=== PATIENT | male | born 1955 | race Caucasian/White ===

== ENCOUNTER 2016-10-20 18:06 | Emergency (ER) | payer BC, OTHER ==
[~2016-10-20] VITALS: Ht 170.2 cm; Wt 91.9 kg
[~2016-10-20 18:06] MED LIST: ASPI325T39 PO; ATOR10TA88 PO; ATV5X PO; CRG125 PO; GLC/500 PO; MULT-506 PO; WEIGHT LOSS PO
[2016-10-20 18:13] VITALS: TEMP 36.6; Ht 170.2 cm; Wt 91.9 kg
[2016-10-20] MEDS ORDERED: MECLIZINE HCL 25 MG TAB PO STA (18:32)
[2016-10-20] MEDS ORDERED: ACETAMINOPHEN 500 MG TAB PO STA (18:32)
--- NOTE | 2016-10-20 18:53 | DIAGNOSTIC IMAGING REPORT ---
CT HEAD WITHOUT CONTRAST (CT) CLINICAL HISTORY: Headache and dizziness status post head trauma COMPARISON STUDY: 09/15/2014 TECHNIQUE: Axial CT of the brain is performed from the vertex to the skull base. IV contrast was not administered for this examination. CT DOSE: 729.78 mGycm FINDINGS: No intra or extra-axial mass lesions are visualized. There is no CT evidence of acute cortical infarction. There is no evidence of midline shift. There is no acute hemorrhage. No calvarial fractures are visualized. There are minimal white matter hypodensities likely on a small vessel basis. There is no evidence of pathologic ventricular dilatation. There are mild atrophic changes similar to the preceding study. There is a small lipoma adjacent to the torcula. There is no evidence of acute sinusitis IMPRESSION: No acute intracranial findings Electronically signed by: Flash Strong M.D. 10/20/2016 6:51 PM Dictated Date/Time: 10/20/2016 6:49 PM
[2016-10-20] MEDS ORDERED: LISI-461 PO (19:01)
[2016-10-20] MEDS ORDERED: METF-384 PO (19:01)
[2016-10-20] MEDS ORDERED: LPT10 PO (19:01)
[2016-10-20] MEDS ORDERED: INSU3INJ3 SC (19:06)
[2016-10-20] MEDS ORDERED: INDO-24 PO (19:06)
[2016-10-20] MEDS ORDERED: NORCO 5/325MG HOME PACK PO ONE (19:15)
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
[2016-10-20] MEDS ORDERED: HYDR-5688 PO (19:38)
[2016-10-20 19:54] VITALS: BP 159/93; PULSE 86; O2SAT 98
[2017-02-14] MEDS ORDERED: LSX40 PO (00:37)
[2017-05-16] MEDS ORDERED: ASPCH81X PO (09:35)
== END 2016-10-20 19:56 | disposition home or self-care (01) ==
LOC: C.EDB 18:08 → C.EDD 19:56
DX: S09.90XA Unspecified injury of head, initial encounter (principal); W50.0XXA Accidental hit or strike by another person, initial encounter; Y92.89 Other specified places as the place of occurrence of the external cause; Y99.0 Civilian activity done for income or pay; E11.9 Type 2 diabetes mellitus without complications; I10 Essential (primary) hypertension; I51.9 Heart disease, unspecified; E78.5 Hyperlipidemia, unspecified; Z79.4 Long term (current) use of insulin; Z79.82 Long term (current) use of aspirin; Z79.84 Long term (current) use of oral hypoglycemic drugs; Z79.899 Other long term (current) drug therapy

== ENCOUNTER 2017-02-14 17:44 | Inpatient (IN) | payer BC ==
[~2017-02-14] VITALS: Ht 170.2 cm; Wt 86.7 kg
[~2017-02-14 17:44] MED LIST changes: -ATOR10TA88 PO; -GLC/500 PO; +HYDR-5688 PO; +INDO-24 PO; +INSU3INJ3 SC; +LISI-461 PO; +LPT10 PO; +LSX40 PO; +METF-384 PO; -WEIGHT LOSS PO
[2017-02-14] MEDS ORDERED: ASPIRIN 81 MG CHEW PO STA (18:05)
[2017-02-14 18:43] LABS: BASO % 0.3 %; BASO ABS # 0.02 K/uL (0-0.2); COMPLETE YES; HEMATOCRIT 38.2 % (42-52); IG% 0.2 %; LYMPH % 29.9 %; LYMPH ABS # 1.77 K/uL (1.2-3.4); MEAN CELL VOLUME 86.2 fL (80-100); MEAN CORPUSCULAR HEMOGLOBIN 29.3 pg (25-34); MEAN PLATELET VOLUME 10.4 fL (7.4-10.4); MONO % 8.8 %; NEUT % 57.8 %; PLATELET COUNT 181 K/uL (130-400); RED BLOOD COUNT 4.43 M/uL (4.7-6.1); WHITE BLOOD COUNT 5.92 K/uL (4.8-10.8)
--- NOTE | 2017-02-14 18:49 | DIAGNOSTIC IMAGING REPORT ---
SINGLE VIEW CHEST CLINICAL HISTORY: Atypical chest pain. FINDINGS: An AP, portable, upright chest radiograph is compared to study dated 04/08/2015 and correlated with chest CT dated 09/04/2014. The examination is degraded by portable technique and patient rotation. The cardiomediastinal silhouette is unremarkable. The lungs and pleural spaces are clear. No pneumothorax is seen. The bony thorax is grossly intact. IMPRESSION: No active disease in the chest. Electronically signed by: Pascual Joseph M.D. 02/14/2017 6:47 PM Dictated Date/Time: 02/14/2017 6:47 PM
[2017-02-14 18:53] LABS: INR 0.9 (0.9-1.1); PROTHROMBIN TIME (PATIENT) 10.1 SECONDS (9.0-12.0)
[2017-02-14 19:10] LABS: ALT/SGPT 27 U/L (12-78); AST/SGOT 15 U/L (15-37); BLOOD UREA NITROGEN 30 mg/dl (7-18); BUN/CREATININE RATIO 22.9 (10-20); CALCIUM 8.7 mg/dl (8.5-10.1); CARBON DIOXIDE 25 mmol/L (21-32); CHLORIDE 105 mmol/L (98-107); GLUCOSE 170 mg/dl (70-99); POTASSIUM 4.1 mmol/L (3.5-5.1); SODIUM 140 mmol/L (136-145)
[2017-02-14 19:15] LABS: ALKALINE PHOSPHATASE 66 U/L (45-117); CKMB/CK RATIO 2.3 (0-3.0)
[2017-02-14] MEDS ORDERED: TRAM-10 PO (19:36)
--- NOTE | 2017-02-14 20:10 | EMERGENCY ROOM VISIT NOTE ---
History First contact with patient: 17:54 Chief Complaint: CARDIAC ASSESSMENT Stated Complaint: HEART EKG BAD ,DIZZY Nursing Triage Summary: Patient went to his PCP today for evaluation of weakness and dizziness Sent to the ED for evaluation of EKG with T wave inversion. Patient denies CP. He stated "I think I over did it with my new job" History of Present Illness The patient is a 61 year old male who presents to the Emergency Room for an abnormal ECG at his PCPs office today. The patient reports that he started a new job 3 weeks ago. He reports that the job is very physical. 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 The patient reports that he has had upper back pain since starting. The patient has also had a headache and weakness. He was concerned mostly about the weakness, and presented to his family doctor' s office today for evaluation. He reported having a T-wave inversion, and was sent to the emergency department for further evaluation. The patient reports that his pain is mostly on the left side. He does report occasional numbness of the right upper extremity. He has not had any diaphoresis, nausea or vomiting. The patient does have a history of heart disease, and follows with [facility] cardiology service. He does not recall when his last stress test was. The patient is currently afebrile. The patient does report a prior history of vertebral fracture secondary to a work injury last March. He does not recall which vertebrae was involved as is x-ray was performed at [facility]. Review of Systems HEENT: Denies visual problems, hearing loss, tinnitus. Denies difficulty swallowing or oral lesions. PULMONARY: Denies cough, shortness of breath, sputum production or hemoptysis. CARDIOVASCULAR: Denies palpitations, dyspnea on exertion, orthopnea or peripheral edema. GASTROINTESTINAL: Denies diarrhea, constipation, nausea, vomiting, or abdominal pain. GENITOURINARY: Denies dysuria, frequency, urgency or nocturia. NEUROLOGIC: Denies history of epilepsy, CVA, TIA or chronic headaches. MUSCULOSKELETAL: Denies history of joint tenderness/swelling. SKIN: Denies rashes or lesions. PSYCHIATRIC: Denies history of depression or mental illness. ENDOCRINE: Denies history of diabetes or thyroid disorders. Past Medical/Surgical History Medical Problems: (1) Anxiety State Nos (2) Coronary Atherosclerosis Of [place] Coronary Vessel (3) Diab Dot Wo Compl, Type Ii Or Unspec Type, Not Uncntrld (4) Diabetes (5) Hyperlipemia (6) Hyperlipidemia Nec/Nos (7) Hypertension (8) Hypertension Nos (9) Organic Hypersomnia, Unspecified Surgical Problems: (1) History of cardiac catheterization Family History Cancer Diabetes mellitus Hypertension Lung disease Social History Smoking Status: Never Smoker Alcohol Use: none Marital Status: Housing Status: lives with family Occupation Status: unemployed Current/Historical Medications Scheduled Aspirin (Aspirin Ec), 325 MG PO DAILY Atorvastatin (Atorvastatin Calcium), 10 MG PO HS Carvedilol (Carvedilol), 12.5 MG PO QPM Furosemide (Furosemide), 40 MG PO QPM Insulin Detemir (Levemir Flextouch), 20 UNITS SC QAM Lisinopril (Lisinopril), 10 MG PO DAILY Metformin Hcl (Glucophage), 1,000 MG PO BIDM Multivitamin (Multivitamin), 1 TAB PO DAILY Scheduled PRN Indomethacin (Indocin), 50 MG PO TID PRN for Gout Flares Lorazepam (Lorazepam), 0.5 MG PO Q8 PRN for Anxiety Tramadol (Ultram), 50 MG PO Q8H PRN for Pain Allergies Coded Allergies: No Known Allergies (Unverified , 10/11/16) Physical Exam Vital Signs Date Time Temp Pulse Resp B/P Pulse Ox O2 Delivery O2 Flow Rate FiO2 02/14/17 18:30 96 Room Air 02/14/17 18:28 79 02/14/17 18:27 96 Room Air 02/14/17 17:48 36.5 88 16 99/66 94 Room Air Physical Exam CONSTITUTIONAL: Healthy and well nourished. Alert and oriented X 3 with positive affect. She does not appear in any acute distress. HEENT: Normocephalic, atraumatic. Pupils equal, round and reactive. NECK: Full active range of motion without discomfort. No significant tenderness to palpation through the central cervical spine or cervical musculature. RESPIRATORY: Clear to auscultation bilaterally with no wheezing, crackles, rhonchi or stridor. CARDIOVASCULAR: Regular rate and rhythm with no murmurs, rubs or gallops. GASTROINTESTINAL: Bowel sounds present in all quadrants. Soft and nontender to palpation. MUSCULOSKELETAL: Full range of motion of all joints without discomfort. Patient has no tenderness to palpation across the left anterior chest wall, costochondral joints or shoulder region. Range of motion of the left shoulder does not worsen his discomfort. INTEGUMENTARY: No rash or other significant dermatologic conditions noted. HEMATOLOGIC: No ecchymosis or petechiae appreciated. NEUROLOGIC: Cranial nerves II-XII grossly intact. No focal neurologic deficits noted. Upper extremities are sensory intact. Medical Decision & Procedures ER Provider Diagnostic Interpretation: My interpretation of an ECG shows an inverted T-wave in lead 1, and flattening T waves in lateral leads. This is different when compared to a prior ECG on . My interpretation of a portable chest x-ray does not show any consolidations, pneumothorax or cardiac prominence. Radiologist report is as follows: SINGLE VIEW CHEST CLINICAL HISTORY: Atypical chest pain. FINDINGS: An AP, portable, upright chest radiograph is compared to study dated 04/08/2015 and correlated with chest CT dated 09/04/2014. The examination is degraded by portable technique and patient rotation. The cardiomediastinal silhouette is unremarkable. The lungs and pleural spaces are clear. No pneumothorax is seen. The bony thorax is grossly intact. IMPRESSION: No active disease in the chest. Laboratory Results 02/14/17 18:25 Red Blood Count 4.43, Mean Corpuscular Volume 86.2, Mean Corpuscular Hemoglobin 29.3, Mean Corpuscular Hemoglobin Concent 34.0, Mean Platelet Volume 10.4, Neutrophils (%) (Auto) 57.8, Lymphocytes (%) (Auto) 29.9, Monocytes (%) (Auto) 8.8, Eosinophils (%) (Auto) 3.0, Basophils (%) (Auto) 0.3, Neutrophils # (Auto) 3.42, Lymphocytes # (Auto) 1.77, Monocytes # (Auto) 0.52, Eosinophils # (Auto) 0.18, Basophils # (Auto) 0.02 02/14/17 18:25 Test 02/14/17 18:25 White Blood Count 5.92 K/uL (4.8-10.8) Red Blood Count 4.43 M/uL (4.7-6.1) Hemoglobin 13.0 g/dL (14.0-18.0) Hematocrit 38.2 % (42-52) Mean Corpuscular Volume 86.2 fL (80-100) Mean Corpuscular Hemoglobin 29.3 pg (25-34) Mean Corpuscular Hemoglobin Concent 34.0 g/dl (32-36) Platelet Count 181 K/uL (130-400) Mean Platelet Volume 10.4 fL (7.4-10.4) Neutrophils (%) (Auto) 57.8 % Lymphocytes (%) (Auto) 29.9 % Monocytes (%) (Auto) 8.8 % Eosinophils (%) (Auto) 3.0 % Basophils (%) (Auto) 0.3 % Neutrophils # (Auto) 3.42 K/uL (1.4-6.5) Lymphocytes # (Auto) 1.77 K/uL (1.2-3.4) Monocytes # (Auto) 0.52 K/uL (0.11-0.59) Eosinophils # (Auto) 0.18 K/uL (0-0.5) Basophils # (Auto) 0.02 K/uL (0-0.2) RDW Standard Deviation 42.6 fL (36.4-46.3) RDW Coefficient of Variation 13.5 % (11.5-14.5) Immature Granulocyte % (Auto) 0.2 % Immature Granulocyte # (Auto) 0.01 K/uL (0.00-0.02) Prothrombin Time 10.1 SECONDS (9.0-12.0) Prothromb Time International Ratio 0.9 (0.9-1.1) Activated Partial Thromboplast Time 26.6 SECONDS (21.0-31.0) Partial Thromboplastin Ratio 1.0 D-Dimer 290 ug/L FEU (0-500) Anion Gap 10.0 mmol/L (3-11) Est Creatinine Clear Calc Drug Dose 65.0 ml/min Estimated GFR () 69.2 Estimated GFR (Non- 59.7 BUN/Creatinine Ratio 22.9 (10-20) Calcium Level 8.7 mg/dl (8.5-10.1) Total Bilirubin 0.6 mg/dl (0.2-1) Direct Bilirubin < 0.1 mg/dl (0-0.2) Aspartate Amino Transf (AST/SGOT) 15 U/L (15-37) Alanine Aminotransferase (ALT/SGPT) 27 U/L (12-78) Alkaline Phosphatase 66 U/L (45-117) Total Creatine Kinase 176 U/L (39-308) Creatine Kinase MB 4.1 ng/ml (0.5-3.6) Creatine Kinase MB Ratio 2.3 (0-3.0) Troponin I < 0.015 ng/ml (0-0.045) Total Protein 6.8 gm/dl (6.4-8.2) Albumin 3.8 gm/dl (3.4-5.0) Lipase 243 U/L (73-393) The above labs were reviewed. Troponin and d-dimer are normal. Medications Administered Medications (Trade) Dose Ordered Sig/Magno Route Start Time Stop Time Status Last Admin Dose Admin Aspirin (Aspirin Chew) 324 mg NOW STAT PO 02/14/17 18:05 02/14/17 18:07 DC 02/14/17 18:17 324 MG ED Course Patient history and physical exam were performed. Nurse's notes were reviewed. Vital signs were reviewed, showing a blood pressure of 99/66. The patient is afebrile. O2 saturation 94% on room air, and pulse rate 88. The patient does not appear in any acute distress, and denies any chest pain on exam. IV access was established, and labs were drawn. An ECG shows lateral changes when compared to a prior ECG in 2014. Review of labs shows a normal troponin and d- dimer. Remaining labs are also grossly normal. The patient remained a symptomatic while in the emergency department. Review of prior medical records shows that the patient was last admitted at our facility in August 2012. The patient did have an extensive workup at that time showing a nonischemic cardiomyopathy. He did undergo cardiac catheterization in July 2011 with only very mild disease. The patient does not appear to have had any recent catheterization procedures. The case was also reviewed with Dr. Avendano, ED attending physician, who agrees with hospitalist evaluation and cardiac workup, including stress test. The case was then discussed with Dr. Vieyra, [facility] hospitalist. Please see his dictation for further treatment and final disposition. Medical Decision Patient presents to the emergency department with a 2-3 day history of left- sided chest pain and other symptoms. The patient has a known history of nonischemic cardiomyopathy. He was also referred to the emergency department from his PCPs office after having an abnormal ECG. His ECG in the emergency department is different from a prior ECG of 2015. Although his workup/labs are normal today, I do feel that change in his ECG warrants further cardiac evaluation and stress echo. With the patient's new job, this could also be musculoskeletal etiology. Impression Primary Impression: Left sided chest pain Additional Impression: History of nonischemic cardiomyopathy Departure Information Referrals Mateo Lamb M.D. (PCP) Patient Instructions My [facility] Problem Qualifiers
[2017-02-14] MEDS ORDERED: TRAMADOL HCL 50 MG TAB PO PRN (20:30)
[2017-02-14] MEDS ORDERED: ONDANSETRON INJ 2 MG/ML 2 ML VIAL IV PRN (20:30)
[2017-02-14] MEDS ORDERED: DEXTROSE 50% 50 ML SYR IV PRN (20:30)
[2017-02-14] MEDS ORDERED: GLUCOSE 10 TABS/TUBE PO PRN (20:30)
[2017-02-14] MEDS ORDERED: LORAZEPAM 0.5 MG TAB PO PRN (20:30)
[2017-02-14] MEDS ORDERED: NITROGLYCERIN 0.4 MG SL PER TAB CHARGE SL PRN (20:30)
[2017-02-14] MEDS ORDERED: ACETAMINOPHEN 325 MG TAB PO PRN (20:30)
[2017-02-14] MEDS ORDERED: GLUCAGON FOR INJ 1 MG VIAL SQ PRN (20:30)
[2017-02-14] MEDS ORDERED: ZOLPIDEM TARTRATE 5 MG TAB PO PRN (20:30)
[2017-02-14] MEDS ORDERED: GLUCOSE 40% GEL 15 GM TUBE PO PRN (20:30)
[2017-02-14] MEDS ORDERED: ATORVASTATIN 10 MG TAB PO SCH (21:00)
[2017-02-14] MEDS: INSULIN ASPART 100 UNITS/ML 3 ML PEN SC SCH (21:00)
[2017-02-14] MEDS ORDERED: FUROSEMIDE 40 MG TAB PO SCH (21:00)
[2017-02-14 21:13] LABS: CKMB/CK RATIO 2.3 (0-3.0)
[2017-02-14 21:30] VITALS: BP 122/70; PULSE 76; TEMP 36.5; O2SAT 96; Ht 170.2 cm; Wt 86.7 kg
[2017-02-14] MEDS: HEPARIN 25,000 UNIT/500ML D5W 500 ML IV PRN (22:20)
[2017-02-14] MEDS: CARVEDILOL 6.25 MG TAB PO SCH (22:32)
[2017-02-14 23:32] VITALS: BP 107/66; PULSE 63; TEMP 36.4; O2SAT 96
--- NOTE | 2017-02-14 23:39 | History and Physical ---
History & Physical Date & Time of Service: February 14, 2017 at 23:39 Chief Complaint: Abnormal Ekg, Left Sided Chest Pain Primary Care Physician: Mateo Lamb M.D. History of Present Illness Source: patient The patient is a 61-year-old male with past medical history of coronary artery disease/diabetes mellitus/hyperlipidemia/hypertension/history of cardiac catheterization, who presents to the emergency department after presenting to his PCPs office for assessment of upper back pain between shoulder blades when he was found to have an abnormal EKG and was referred to the emergency department for further assessment. He has been working a more physical job recently, and in particular, his symptoms of upper back pain, headache, and generalized weakness over the past 3 days have been associated with more physically heavy lifting. His upper back pain is primarily on the left side, but he does also have occasionally right upper extremity numbness. Past Medical/Surgical History Medical Problems: (1) Diabetes Status: Chronic (2) Hyperlipemia Status: Chronic (3) Hypertension Status: Chronic Surgical Problems: (1) History of cardiac catheterization Status: Resolved Family History Cancer Diabetes mellitus Hypertension Lung disease Social History Smoking Status: Never Smoker Smokeless Tobacco Use: No Alcohol Use: none Drug Use: none Marital Status: Housing status: lives with family Occupational Status: unemployed Immunizations History of Influenza Vaccine: No History of Tetanus Vaccine?: Yes History of Pneumococcal: Yes Pneumococcal Date: Aug 03, 2012 History of Hepatitis B Vaccine: Yes Multi-Drug Resistant Organisms History of MDRO: No Allergies Coded Allergies: No Known Allergies (Unverified , 10/11/16) Home Medications Scheduled Aspirin (Aspirin Ec), 325 MG PO DAILY Atorvastatin (Atorvastatin Calcium), 10 MG PO HS Carvedilol (Carvedilol), 12.5 MG PO QPM Furosemide (Furosemide), 40 MG PO QPM Insulin Detemir (Levemir Flextouch), 20 UNITS SC QAM Lisinopril (Lisinopril), 10 MG PO DAILY Metformin Hcl (Glucophage), 1,000 MG PO BIDM Multivitamin (Multivitamin), 1 TAB PO DAILY Scheduled PRN Indomethacin (Indocin), 50 MG PO TID PRN for Gout Flares Lorazepam (Lorazepam), 0.5 MG PO Q8 PRN for Anxiety Tramadol (Ultram), 50 MG PO Q8H PRN for Pain Review of Systems The patient denies chest pain, palpitations, shortness of breath, cough, lower extremity swelling, vision change, hearing change, sore throat, fevers, chills, sweats, weight change, nausea, vomiting, abdominal pain, pelvic pain, blood in urine or stool, dysuria, urinary frequency or urgency, memory loss, rash, abnormal bruising or bleeding, imbalance, focal weakness, numbness or tingling in arms or legs, arthralgias or myalgias, night sweats, or allergy symptoms. The review of systems is otherwise negative other than for that already noted above, and at least 10 systems have been reviewed. Physical Exam Vital Signs Date Time Temp Pulse Resp B/P Pulse Ox O2 Delivery O2 Flow Rate FiO2 02/14/17 23:32 36.4 63 18 107/66 96 Room Air 02/14/17 21:30 36.5 76 18 122/70 96 Room Air 02/14/17 20:34 77 18 114/67 96 Room Air 02/14/17 18:30 96 Room Air 02/14/17 18:28 79 02/14/17 18:27 96 Room Air 02/14/17 17:48 36.5 88 16 99/66 94 Room Air The patient is awake, well-developed and adequately nourished, alert and oriented 3, normocephalic and atraumatic, lying in bed and in no acute distress. HEENT--PERRL, EOMI, mucous membranes and oropharynx normal. Neck--supple, no JVD or bruits, thyroid normal, trachea midline, no adenopathy. Heart--normal S1 and S2, no extra beats, no murmurs, rubs or gallops. Lungs--clear bilaterally with good air movement, no respiratory distress, no accessory muscle use. Abdomen--normal bowel sounds and soft, nontender and nondistended, no hernias or masses, no organomegaly. Extremities--no cyanosis, clubbing or edema. There are good distal pulses b/l. Dermatologic--normal skin turgor, normal color, warm and dry, no abnormal lymph nodes, no rash. Neurologic--cranial nerves II through XII grossly intact, motor and sensory examination normal. Rheumatologic--normal range of motion, nontender, muscles and joints. No reproducible upper back pain Psychiatric--normal affect. Diagnostics Laboratory Results Results Past 24 Hours Test 02/14/17 18:25 02/14/17 20:41 02/14/17 22:36 Range/Units White Blood Count 5.92 4.8-10.8 K/uL Red Blood Count 4.43 4.7-6.1 M/uL Hemoglobin 13.0 14.0-18.0 g/dL Hematocrit 38.2 42-52 % Mean Corpuscular Volume 86.2 80-100 fL Mean Corpuscular Hemoglobin 29.3 25-34 pg Mean Corpuscular Hemoglobin Concent 34.0 32-36 g/dl Platelet Count 181 130-400 K/uL Mean Platelet Volume 10.4 7.4-10.4 fL Neutrophils (%) (Auto) 57.8 % Lymphocytes (%) (Auto) 29.9 % Monocytes (%) (Auto) 8.8 % Eosinophils (%) (Auto) 3.0 % Basophils (%) (Auto) 0.3 % Neutrophils # (Auto) 3.42 1.4-6.5 K/uL Lymphocytes # (Auto) 1.77 1.2-3.4 K/uL Monocytes # (Auto) 0.52 0.11-0.59 K/uL Eosinophils # (Auto) 0.18 0-0.5 K/uL Basophils # (Auto) 0.02 0-0.2 K/uL RDW Standard Deviation 42.6 36.4-46.3 fL RDW Coefficient of Variation 13.5 11.5-14.5 % Immature Granulocyte % (Auto) 0.2 % Immature Granulocyte # (Auto) 0.01 0.00-0.02 K/uL Prothrombin Time 10.1 9.0-12.0 SECONDS Prothromb Time International Ratio 0.9 0.9-1.1 Activated Partial Thromboplast Time 26.6 21.0-31.0 SECONDS Partial Thromboplastin Ratio 1.0 D-Dimer 290 0-500 ug/L FEU Sodium Level 140 136-145 mmol/L Potassium Level 4.1 3.5-5.1 mmol/L Chloride Level 105 98-107 mmol/L Carbon Dioxide Level 25 21-32 mmol/L Anion Gap 10.0 3-11 mmol/L Blood Urea Nitrogen 30 7-18 mg/dl Creatinine 1.30 0.60-1.40 mg/dl Est Creatinine Clear Calc Drug Dose 65.0 ml/min Estimated GFR () 69.2 Estimated GFR (Non- 59.7 BUN/Creatinine Ratio 22.9 10-20 Random Glucose 170 70-99 mg/dl Calcium Level 8.7 8.5-10.1 mg/dl Total Bilirubin 0.6 0.2-1 mg/dl Direct Bilirubin < 0.1 0-0.2 mg/dl Aspartate Amino Transf (AST/SGOT) 15 15-37 U/L Alanine Aminotransferase (ALT/SGPT) 27 12-78 U/L Alkaline Phosphatase 66 45-117 U/L Total Creatine Kinase 176 163 39-308 U/L Creatine Kinase MB 4.1 3.8 0.5-3.6 ng/ml Creatine Kinase MB Ratio 2.3 2.3 0-3.0 Troponin I < 0.015 < 0.015 0-0.045 ng/ml Total Protein 6.8 6.4-8.2 gm/dl Albumin 3.8 3.4-5.0 gm/dl Lipase 243 73-393 U/L Bedside Glucose 131 70-99 mg/dl Diagnostic Radiology Patient Name: RADHA BELL Unit Number: [id number] Dictated: 02/14/171846 Transcribed: 02/14/171846 EV Printed Date/Time: [~ rep prt dt]/[~ rep prt tm] [~ rep ct labl] - [~ rep ct ivnm] [facility] [place] [place] [address] Dictated: 02/14/171846 Transcribed: 02/14/171846 EV Printed Date/Time: [~ rep prt dt]/[~ rep prt tm] [~ rep ct labl] - [~ rep ct ivnm] [~ rep ct add3]] SINGLE VIEW CHEST CLINICAL HISTORY: Atypical chest pain. FINDINGS: An AP, portable, upright chest radiograph is compared to study dated 04/08/2015 and correlated with chest CT dated 09/04/2014. The examination is degraded by portable technique and patient rotation. The cardiomediastinal silhouette is unremarkable. The lungs and pleural spaces are clear. No pneumothorax is seen. The bony thorax is grossly intact. IMPRESSION: No active disease in the chest. Electronically signed by: Pascual Joseph M.D. 02/14/2017 6:47 PM Dictated Date/Time: 02/14/2017 6:47 PM The status of this report is Signed. Draft = Not yet reviewed or approved by Radiologist. Signed = Reviewed and approved by Radiologist. <AttendingPhy></AttendingPhy> <FamilyPhy>Mateo Lamb M.D.</FamilyPhy > <PrimaryPhy>Mateo Lamb M.D.</PrimaryPhy> <UnitNumber>[id number]</ UnitNumber> <VisitNumber>[id number]</VisitNumber> <PatientName>RADHA BELL</PatientName> <DateOfBirth>1955</DateOfBirth> <Location>[facility]</ Location> <ServiceDate>02/14/17</ServiceDate> <MNE>ESINDI</MNE> <OrderingPhy> Fahad Raza</OrderingPhy> <OrderingPhyMNE>f rep ord dr read</ OrderingPhyMNE> <DictatingPhyMNE>f rep dict dr read</DictatingPhyMNE> <CCListMNE> f rep ct jacek</CCListMNE> <AdmittingPhyMNE>f pt admit dr read</AdmittingPhyMNE> < AttendingPhyMNE>f pt attend dr read</AttendingPhyMNE> <ConsultingPhyMNE>f pt consult dr read</ConsultingPhyMNE> <FamilyPhyMNE>f pt fam dr read</FamilyPhyMNE> <OtherPhyMNE>f pt other dr read</OtherPhyMNE> < PrimaryPhyMNE>f pt prim care dr read</PrimaryPhyMNE> <ReferringPhyMNE>f pt referring dr read</ReferringPhyMNE> EKG EKG shows normal sinus rhythm at 83 bpm, left axis deviation, T-wave inversions in leads I and aVL, and flattening decreased sample to in V5 and V6. Impression Assessment and Plan CAD/hypertension/lateral EKG changes-- the patient will be admitted to the telemetry unit for serial cardiac enzymes, cardiac rhythm monitoring and a 2-D echocardiogram with Dopplers. He'll be started on heparin drip standard dose per weight-based protocol. Continue aspirin 325 mg by mouth daily and change carvedilol from 12.5 mg every evening to 0.25 mg by mouth twice a day. Continue furosemide 40 mg by mouth daily and lisinopril 10 mg by mouth daily. Repeat a BMP and magnesium level in the a.m. We'll consult cardiology, as he follows with an [facility] cardiology. Diabetes mellitus--continue Levemir insulin 20 units subcutaneous every morning. Hold metformin 1000 mg by mouth twice a day. Place on Accu-Cheks before meals and at bedtime with NovoLog coverage scale. Hypercholesterolemia--continue atorvastatin 10 mg by mouth at bedtime. Check a fasting lipid profile. Anxiety--continue lorazepam 0.5 mg by mouth every 8 hours when necessary. Chronic pain--continue tramadol 50 mg by mouth every 8 hours when necessary. Level of Care Telemetry Advanced Directives Existing Advance Directive: No Existing Living Will: No Existing Power of Banquet Manager: No Resuscitation Status FULL RESUSCITATION VTE Prophylaxis VTE Risk Assessment Done? Y/N: Yes Risk Level: Low Given or contraindicated: Other Anticoagulation (IV heparin per standard dose weight-based protocol.) Social Service Consult None Apply
[2017-02-15] MEDS ORDERED: HEPARIN 25,000 UNIT/500ML D5W 500 ML IV PRN (01:15)
[2017-02-15 03:51] VITALS: BP 111/75; PULSE 65; TEMP 36.5; O2SAT 94
[2017-02-15 04:48] LABS: BASO % 0.4 %; BASO ABS # 0.02 K/uL (0-0.2); COMPLETE YES; EOS % 4.3 %; HEMATOCRIT 39.8 % (42-52); IG% 0.2 %; LYMPH % 29.8 %; LYMPH ABS # 1.68 K/uL (1.2-3.4); MEAN CELL VOLUME 86.3 fL (80-100); MEAN CORPUSCULAR HEMOGLOBIN 28.9 pg (25-34); MEAN CORPUSCULAR HGB CONC 33.4 g/dl (32-36); MEAN PLATELET VOLUME 9.9 fL (7.4-10.4); MONO % 10.8 %; NEUT % 54.5 %; PLATELET COUNT 178 K/uL (130-400); RED BLOOD COUNT 4.61 M/uL (4.7-6.1); WHITE BLOOD COUNT 5.63 K/uL (4.8-10.8)
[2017-02-15 05:06] LABS: BLOOD UREA NITROGEN 23 mg/dl (7-18); BUN/CREATININE RATIO 20.6 (10-20); CALCIUM 8.5 mg/dl (8.5-10.1); CARBON DIOXIDE 30 mmol/L (21-32); CHLORIDE 104 mmol/L (98-107); GLUCOSE 123 mg/dl (70-99); POTASSIUM 3.9 mmol/L (3.5-5.1); SODIUM 141 mmol/L (136-145)
[2017-02-15 05:11] LABS: CKMB/CK RATIO 2.4 (0-3.0)
[2017-02-15] MEDS: HEPARIN 25,000 UNIT/500ML D5W 500 ML IV PRN (05:43)
[2017-02-15] MEDS: INSULIN ASPART 100 UNITS/ML 3 ML PEN SC SCH (07:00)
[2017-02-15] MEDS ORDERED: PERFLUTREN LIPID MICROSPHERE (DEFINITY) IV ONE (07:11)
[2017-02-15 07:18] VITALS: BP 110/73; PULSE 68; TEMP 36.3; O2SAT 95
[2017-02-15] MEDS ORDERED: ALUMINUM/MAGNESIUM/SIMETH (MAALOX MAX) 30 ML UDC ONE (07:37)
[2017-02-15] MEDS: CARVEDILOL 6.25 MG TAB PO SCH (07:39)
[2017-02-15 08:21] LABS: CHOLESTEROL/HDL RATIO 4.8
[2017-02-15] MEDS ORDERED: INSULIN DETEMIR FLEXPEN/FLEX TOUCH 100 UNITS/ML 3ML SC SCH (09:00)
[2017-02-15] MEDS ORDERED: LISINOPRIL 10 MG TAB PO SCH (09:00)
[2017-02-15] MEDS ORDERED: MULTIVITAMIN TAB PO SCH (09:00)
[2017-02-15] MEDS ORDERED: ASPIRIN 325 MG ECTAB PO SCH (09:00)
[2017-02-15 09:13] LABS: ESTIMATED AVERAGE GLUCOSE 120 mg/dl; HA1C FLAG Normal (Normal)
--- NOTE | 2017-02-15 10:38 | CARDIOLOGY CONSULTATION ---
DATE OF CONSULTATION: 02/15/2017 DATE OF CONSULTATION: 02/15/2017. PERTINENT HISTORY: Mr. Sauceda is a 61-year-old white female well known to me from the outpatient setting. He was admitted yesterday with back and chest discomfort. This consultation was ordered to assist in his management. The patient's recent history began 3 weeks ago. 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 Approximately 1 week after starting the job, he began to note significant upper back discomfort. His pain was constant, but was improved with the use of tramadol. Over that same time frame, the patient developed "a pulled muscle" in his chest. As he describes a sensation, he notes a tenderness across the pectoralis regions bilaterally. At no time has chest pain increased with physical activity. The patient's cardiac history began in July 2011 when he presented to our institution with decompensated congestive heart failure. An echocardiogram noted an ejection fraction of 20-25%. He underwent cardiac catheterization which revealed nonobstructive (20% mid LAD, 20% ramus intermedius). The patient was started on carvedilol and lisinopril. An echocardiogram performed in March 2016 noted improvement in his left ventricular systolic function with an ejection fraction of 45%. There is mild hypokinesis, and evidence of diastolic dysfunction. The patient follows daily weights at home and has not required additional diuretic dosing in over 1 year. PAST MEDICAL HISTORY: 1. Dilated cardiomyopathy -- 25% in 2010, 45% in March 2016. 2. History of systolic congestive heart failure - July 2011. 3. Nonobstructive coronary artery disease status, 20% LAD, 20% ramus intermedius July 2011. 4. Mild mitral regurgitation. 5. Hypertension. 6. Hypercholesterolemia. 7. Diabetes mellitus. 8. GERD. 9. Polyneuropathy. 10. Obstructive sleep apnea. 11. PTSD. 12. Gout. 13. Left foot traumatic injury -- status post ORIF -- October 2015. MEDICATIONS: 1. Carvedilol 6.25 mg b.i.d. 2. Lisinopril 10 mg daily. 3. Lasix 40 mg per day. 4. Aspirin 325 mg daily. 5. Lipitor 10 mg at bedtime. 6. Levemir 20 units subQ q.a.m. 7. Multivitamin 1 per day. 8. Heparin drip. SOCIAL HISTORY: The patient is and lives with his . Works at [employer] x3 weeks. Does not use tobacco or alcohol. FAMILY HISTORY: Mother at age 87 from "old age." Father from lung carcinoma. REVIEW OF SYSTEMS: A 10-point review of systems was negative except for that described above. PHYSICAL EXAMINATION: GENERAL: This is a well-developed, well-nourished white male in no acute distress. VITAL SIGNS: Blood pressure is 110/73 with a regular pulse of 68. Respiratory rate is 20. The patient is afebrile at 36.3 degrees Celsius. Saturations 95% on room air. HEAD, EYES, EARS, NOSE, AND THROAT EXAMINATION: Negative. NECK: Supple with full carotid upstrokes. There are no carotid bruits. Jugular venous pressure is flat at 90 degrees. There is no thyromegaly. CARDIOVASCULAR EXAMINATION: Reveals a regular rhythm. Normal S1 and S2. Heart sounds are distant. No obvious murmurs. No S3 or S4. LUNGS: Clear without rales, rhonchi, or wheezes. ABDOMEN: Soft, nontender without bruits. EXTREMITIES: Reveal intact radial artery pulses bilaterally. CHEST: Reveals tenderness to palpation across both pectoralis major muscles. Back is nontender to palpation. LABORATORY DATA: CBC notes a hemoglobin of 13.3, hematocrit 39.8, white count 5.6, platelet count 178,000. Electrolytes note a sodium of 141, potassium 3.9, chloride 104, bicarbonate 30, BUN 23, creatinine 1.1, glucose 123. Three separate troponin I levels are undetectable at less than 0.015. Three CKs were normal at 176, 163, 123 with MB fractions of 4.1, 3.8, and 3.0 respectively. LDL cholesterol was 132 with HDL 48. PTT is subtherapeutic at 52.6. EKG notes sinus rhythm, left ventricular hypertrophy and repolarization changes. Chest x-ray shows no acute disease. IMPRESSION: Mr. Sauceda was admitted with a chest pain syndrome. His history and physical examination suggests musculoskeletal chest discomfort. He does have relief when using tramadol. As the patient had minimal coronary disease at the time of cardiac catheterization in 2010, doubt that he has had major progression of disease in that time frame. Stress testing or cardiac catheterization is not indicated for this noncardiac chest pain syndrome. PLAN: 1. Discontinue heparin. 2. Ambulate in the hallways, discharge home if stable. FRANCISCO JAVIER
--- NOTE | 2017-02-15 10:54 | ECHOCARDIOGRAM REPORT ---
*NOTICE TO RECEIVING REPUBLICAN AGENCY This information is strictly Confidential and protected under [place] law. [place] law prohibits you from making any further disclosure of this information unless further disclosure is expressly permitted by the written consent of the person to whom it pertains or is authorized by law. A general authorization for the release of medical or other information is not sufficient for this purpose. Hospital accepts no responsibility if the information is made available to any other person, INCLUDING THE PATIENT. Interpretation Summary * Name: RADHA BELL Study Date: 02/15/2017 06:56 AM BP: 111/75 mmHg * Patient Location: C.2T\S\S240\S\2 HR: 65 * : 1955 (M/d/yyyy) Gender: Male Height: 67 in * Age: 61 yrs Ethnicity: CA Weight: 195 lb * Ordering Physician: Santiago Vieyra * Referring Physician: Paula Armstrong * Performed By: Denisa Gongora * * Reason For Study: CHEST PAIN * BSA: 2.0 m2 * -- Conclusions -- * The left ventricle is mildly dilated. * Left ventricular systolic function is moderately reduced. * Grade I diastolic dysfunction, (abnormal relaxation pattern). * The right ventricular systolic function is reduced as assessed by tricuspid annular plane systolic excursion (TAPSE) (TAPSE <1.6 cm). * When compared directly to a study from 07/2011, there has been no significant change in LV systolic function Procedure Details * A complete two-dimensional transthoracic echocardiogram was performed (2D, M-mode, Doppler and color flow Doppler). * A contrast injection of Definity was performed to improve assessment of LV function. * Contrast was injected into an intravenous site in the right arm. * One vial of Definity ultrasound contrast was diluted in normal saline to a total volume of 10 ml. A total of '3' ml of solution was administered during imaging. * Lot # [id number] of Definity utilized for procedure. * Expiration date 01/16. * The attending nurse who injected the contrast agent was DANIELLA CORLEY RN. Left Ventricle * The left ventricle is mildly dilated. * Ejection Fraction = 30-35%. * Left ventricular systolic function is moderately reduced. * Grade I diastolic dysfunction, (abnormal relaxation pattern). * There is moderate global hypokinesis of the left ventricle. Right Ventricle * The right ventricle is grossly normal size. * The right ventricular systolic function is reduced as assessed by tricuspid annular plane systolic excursion (TAPSE) (TAPSE <1.6 cm). Mitral Valve * The mitral valve is grossly normal. * Significant mitral regurgitation is absent. Tricuspid Valve * The tricuspid valve is not well visualized, but is grossly normal. * There is trace tricuspid regurgitation. Aortic Valve * The aortic valve is normal in structure and function. * No hemodynamically significant valvular aortic stenosis. * There is no significant aortic regurgitation. Pericardium/Pleural * There is no pericardial effusion. Great Vessels * IVC not well visualized MMode 2D Measurements and Calculations ACS 1.3 cm asc Aorta Diam 3.4 cm LVOT diam 2.5 cm LVOT area 4.9 cm\S\2 LVAd ap4 35.8 cm\S\2 LVLd ap4 8.3 cm EDV(MOD-sp4) 126.0 ml LVAs ap4 18.2 cm\S\2 LVLs ap4 7.1 cm ESV(MOD-sp4) 39.0 ml EF(MOD-sp4) 69.0 % LVAd ap2 32.8 cm\S\2 LVLd ap2 8.2 cm EDV(MOD-sp2) 108.0 ml LVAs ap2 17.0 cm\S\2 LVLs ap2 6.4 cm ESV(MOD-sp2) 37.0 ml EF(MOD-sp2) 65.7 % CO(MOD-sp4) 6.6 l/min CI(MOD-sp4) 3.3 l/min/m\S\2 SV(MOD-sp4) 87.0 ml SI(MOD-sp4) 43.5 ml/m\S\2 CO(MOD-sp2) 5.4 l/min CI(MOD-sp2) 2.7 l/min/m\S\2 SV(MOD-sp2) 71.0 ml SI(MOD-sp2) 35.5 ml/m\S\2 Doppler Measurements and Calculations MV E max ulises 36.7 cm/sec MV A max ulises 51.5 cm/sec MV E/A 0.71 MV dec time 0.26 sec Ao V2 max 88.7 cm/sec Ao max PG 3.1 mmHg Ao max PG (full) 1.4 mmHg ALEK(V,A) 3.7 cm\S\2 ALEK(V,D) 3.7 cm\S\2 LV V1 max PG 1.7 mmHg LV V1 max 66.1 cm/sec PA V2 max 35.4 cm/sec PA max PG 0.50 mmHg TR max ulises 207.5 cm/sec
--- NOTE | 2017-02-15 11:04 | Discharge Instructions ---
Discharge Instructions Date of Service February 15, 2017. Admission Reason for Admission: Abnormal Ekg, Left Sided Chest Pain Discharge Discharge Diagnosis / Problem: CHest pain rule out Discharge Goals Goal(s): Decrease discomfort, Improve function, Increase independence, Improve disease control, Diagnostic testing, Therapeutic intervention Activity Recommendations Activity Limitations: resume your previous activity Shower/Bathe: no limitations . Instructions / Follow-Up Instructions / Follow-Up Patient to be discharged home Likelychest pain from muscular pain Agree with using tramadol at home for pain, also recommended using heating pad No further recommendations at this time FOllow up with PCP as scheduled Current Hospital Diet Patient's current hospital diet: AHA Diet (Heart Healthy), Diabetes Type 1 Diet Discharge Diet Recommended Diet: Diabetes Type 1 Diet Pending Studies Studies pending at discharge: no Laboratory Results Hemoglobin A1c Test 02/15/17 04:36 Range/Units Estimated Average Glucose 120 mg/dl Hemoglobin A1c 5.8 H 4.5-5.6 % Lipid Panel Test 02/15/17 04:36 Range/Units Triglycerides Level 243 H 0-150 mg/dl Cholesterol Level 229 H 0-200 mg/dl HDL Cholesterol 48 mg/dl Cholesterol/HDL Ratio 4.8 LDL Cholesterol, Calculated 132 mg/dl Medical Emergencies . Who to Call and When: Medical Emergencies: If at any time you feel your situation is an emergency, please call 911 immediately. . Non-Emergent Contact Non-Emergency issues call your: Primary Care Provider Call Non-Emergent contact if: you have a fever, your pain is worsening . . "Provider Documentation" section prepared by Martir Veloz. . VTE Core Measure Inpt VTE Proph given/why not?: Other Anticoagulation (IV heparin per standard dose weight-based protocol.)
[2017-02-15 11:06] VITALS: BP 110/73; PULSE 68; TEMP 36.3; O2SAT 95
--- NOTE | 2017-02-15 12:27 | Progress Note ---
Subjective Date of Service: February 15, 2017. Subjective Pt evaluation today including: conversation w/ patient, physical exam, chart review, lab review, review of studies, review of inpatient medication list No chest pain No acute events overnight Resting comfortably in bed Problem List Medical Problems: (1) Closed head injury Status: Acute (2) Left sided chest pain Status: Acute (3) Work related injury Status: Acute Review of Systems Constitutional: No chills, No fever Respiratory: No cough, No dyspnea on exertion, No shortness of breath, No sputum, No wheezing Cardiac: No chest pain, No orthopnea Abdomen: No diarrhea, No nausea, No pain, No vomiting Musculoskeletal: No joint pain, No muscle pain Male : No dysuria, No urinary frequency Objective Vital Signs Date Time Temp Pulse Resp B/P Pulse Ox O2 Delivery O2 Flow Rate FiO2 02/15/17 11:06 36.3 68 20 95 Room Air 02/15/17 08:00 Room Air 02/15/17 07:18 36.3 68 20 110/73 95 Room Air 02/15/17 04:05 Room Air 02/15/17 03:51 36.5 65 18 111/75 94 Room Air 02/15/17 00:31 Room Air 02/14/17 23:32 36.4 63 18 107/66 96 Room Air 02/14/17 21:30 36.5 76 18 122/70 96 Room Air 02/14/17 20:34 77 18 114/67 96 Room Air 02/14/17 18:30 96 Room Air 02/14/17 18:28 79 02/14/17 18:27 96 Room Air 02/14/17 17:48 36.5 88 16 99/66 94 Room Air Physical Exam General Appearance: WD/WN, no apparent distress Neck: supple, no adenopathy Respiratory/Chest: lungs clear, normal breath sounds Cardiovascular: no edema, no gallop Abdomen: non tender, soft Neurologic/Psychiatric: alert, normal mood/affect Laboratory Results Last 24 Hours Test 02/14/17 18:25 02/14/17 20:41 02/14/17 22:36 02/15/17 04:36 White Blood Count 5.92 K/uL 5.63 K/uL Red Blood Count 4.43 M/uL 4.61 M/uL Hemoglobin 13.0 g/dL 13.3 g/dL Hematocrit 38.2 % 39.8 % Mean Corpuscular Volume 86.2 fL 86.3 fL Mean Corpuscular Hemoglobin 29.3 pg 28.9 pg Mean Corpuscular Hemoglobin Concent 34.0 g/dl 33.4 g/dl Platelet Count 181 K/uL 178 K/uL Mean Platelet Volume 10.4 fL 9.9 fL Neutrophils (%) (Auto) 57.8 % 54.5 % Lymphocytes (%) (Auto) 29.9 % 29.8 % Monocytes (%) (Auto) 8.8 % 10.8 % Eosinophils (%) (Auto) 3.0 % 4.3 % Basophils (%) (Auto) 0.3 % 0.4 % Neutrophils # (Auto) 3.42 K/uL 3.07 K/uL Lymphocytes # (Auto) 1.77 K/uL 1.68 K/uL Monocytes # (Auto) 0.52 K/uL 0.61 K/uL Eosinophils # (Auto) 0.18 K/uL 0.24 K/uL Basophils # (Auto) 0.02 K/uL 0.02 K/uL RDW Standard Deviation 42.6 fL 42.6 fL RDW Coefficient of Variation 13.5 % 13.6 % Immature Granulocyte % (Auto) 0.2 % 0.2 % Immature Granulocyte # (Auto) 0.01 K/uL 0.01 K/uL Prothrombin Time 10.1 SECONDS Prothromb Time International Ratio 0.9 Activated Partial Thromboplast Time 26.6 SECONDS 52.6 SECONDS Partial Thromboplastin Ratio 1.0 2.0 D-Dimer 290 ug/L FEU Sodium Level 140 mmol/L 141 mmol/L Potassium Level 4.1 mmol/L 3.9 mmol/L Chloride Level 105 mmol/L 104 mmol/L Carbon Dioxide Level 25 mmol/L 30 mmol/L Anion Gap 10.0 mmol/L 7.0 mmol/L Blood Urea Nitrogen 30 mg/dl 23 mg/dl Creatinine 1.30 mg/dl 1.10 mg/dl Est Creatinine Clear Calc Drug Dose 65.0 ml/min 76.9 ml/min Estimated GFR () 69.2 84.7 Estimated GFR (Non- 59.7 73.1 BUN/Creatinine Ratio 22.9 20.6 Random Glucose 170 mg/dl 123 mg/dl Calcium Level 8.7 mg/dl 8.5 mg/dl Total Bilirubin 0.6 mg/dl Direct Bilirubin < 0.1 mg/dl Aspartate Amino Transf (AST/SGOT) 15 U/L Alanine Aminotransferase (ALT/SGPT) 27 U/L Alkaline Phosphatase 66 U/L Total Creatine Kinase 176 U/L 163 U/L 123 U/L Creatine Kinase MB 4.1 ng/ml 3.8 ng/ml 3.0 ng/ml Creatine Kinase MB Ratio 2.3 2.3 2.4 Troponin I < 0.015 ng/ml < 0.015 ng/ml < 0.015 ng/ml Total Protein 6.8 gm/dl Albumin 3.8 gm/dl Lipase 243 U/L Bedside Glucose 131 mg/dl Estimated Average Glucose 120 mg/dl Hemoglobin A1c 5.8 % Magnesium Level 2.0 mg/dl Triglycerides Level 243 mg/dl Cholesterol Level 229 mg/dl HDL Cholesterol 48 mg/dl LDL Cholesterol, Calculated 132 mg/dl VLDL Cholesterol, Calculated 49 mg/dl Cholesterol/HDL Ratio 4.8 Test 02/15/17 06:33 Bedside Glucose 114 mg/dl Assessment and Plan CAD/hypertension/lateral EKG changes-- the patient will be admitted to the telemetry unit for serial cardiac enzymes, cardiac rhythm monitoring and a 2-D echocardiogram with Dopplers. He'll be started on heparin drip standard dose per weight-based protocol. Continue aspirin 325 mg by mouth daily and change carvedilol from 12.5 mg every evening to 0.25 mg by mouth twice a day. Continue furosemide 40 mg by mouth daily and lisinopril 10 mg by mouth daily. Cardiology consulted, no elev serial trops, repol changes on EKG, chest pain likely musculoskeletal in nature. Resolved and stable for discharge Diabetes mellitus--continue Levemir insulin 20 units subcutaneous every morning. Hold metformin 1000 mg by mouth twice a day. Place on Accu-Cheks before meals and at bedtime with NovoLog coverage scale. Hypercholesterolemia--continue atorvastatin 10 mg by mouth at bedtime. TG 243 Anxiety--continue lorazepam 0.5 mg by mouth every 8 hours when necessary. Chronic pain--continue tramadol 50 mg by mouth every 8 hours when necessary. Pt is FULL CODE
--- NOTE | 2017-02-20 09:31 | Discharge Summary ---
Discharge Summary Date of Service February 20, 2017. Discharge Summary Admission Date: February 14, 2017 at 20:22 Discharge Date: February 15, 2017 Discharge Disposition: Home Principal Diagnosis: Chest pain Immunizations: Have You Had Influenza Vaccine: No History of Tetanus Vaccine?: Yes History of Pneumococcal: Yes Pneumococcal Date: Aug 03, 2012 History of Hepatitis B Vaccine: Yes Consultations: Cardiology Medication Reconciliation Continued Medications: Aspirin (Aspirin Ec) 325 Mg Tab 325 MG PO DAILY Atorvastatin (Atorvastatin Calcium) 10 Mg Tab 10 MG PO HS Carvedilol (Carvedilol) 12.5 Mg Tab 12.5 MG PO QPM Furosemide (Furosemide) 40 Mg Tab 40 MG PO QPM Indomethacin (Indocin) 50 Mg Cap 50 MG PO TID PRN for Gout Flares, CAP TAKE THIS MEDICATION WITH FOOD Insulin Detemir (Levemir Flextouch) 100 Unit/Ml Inj 20 UNITS SC QAM Lisinopril (Lisinopril) 10 Mg Tab 10 MG PO DAILY Lorazepam (Lorazepam) 0.5 Mg Tab 0.5 MG PO Q8 PRN for Anxiety Metformin Hcl (Glucophage) 1,000 Mg Tab 1000 MG PO BIDM Multivitamin (Multivitamin) Tab 1 TAB PO DAILY Tramadol (Ultram) 50 Mg Tab 50 MG PO Q8H PRN for Pain, TAB Discharge Exam Review of Systems: Constitutional: No chills, No fever ENT: No hearing loss, No unusual epistaxis Respiratory: No cough, No sputum Cardiovascular: No chest pain, No edema, No orthopnea Abdomen: No diarrhea, No nausea, No pain, No vomiting Musculoskeletal: No joint pain, No muscle pain Genitourinary - Male: No dysuria, No hematuria Neurologic: No paralysis, No weakness Psychiatric: No anxiety, No depression symptoms Integumentary: No itch, No rash Physical Exam: General Appearance: WD/WN, no apparent distress Eyes: PERRL, EOMI Neck: supple, no adenopathy Respiratory/Chest: chest non-tender, lungs clear Cardiovascular: no edema, no gallop Abdomen / GI: non tender, soft Extremities: normal inspection, no calf tenderness Neurologic/Psychiatric: alert, oriented x 3 Hospital Course CAD/hypertension/lateral EKG changes-- the patient was admitted to the telemetry unit for serial cardiac enzymes, cardiac rhythm monitoring and a 2-D echocardiogram with Dopplers. He was started on heparin drip standard dose per weight-based protocol. Continue aspirin 325 mg by mouth daily and change carvedilol from 12.5 mg every evening to 0.25 mg by mouth twice a day. Continue furosemide 40 mg by mouth daily and lisinopril 10 mg by mouth daily. Cardiology consulted, no elev serial trops, repol changes on EKG, chest pain likely musculoskeletal in nature. Resolved and stable for discharge Diabetes mellitus--continue Levemir insulin 20 units subcutaneous every morning. Hold metformin 1000 mg by mouth twice a day. Place on Accu-Cheks before meals and at bedtime with NovoLog coverage scale. Hypercholesterolemia--continue atorvastatin 10 mg by mouth at bedtime. TG 243 Anxiety--continue lorazepam 0.5 mg by mouth every 8 hours when necessary. Chronic pain--continue tramadol 50 mg by mouth every 8 hours when necessary. Pt is FULL CODE Total Time Spent: Greater than 30 minutes This includes examination of the patient, discharge planning, medication reconciliation, and communication with other providers. Discharge Instructions Please refer to the electronic Patient Visit Report (Discharge Instructions) for additional information. Additional Copies To Mateo Lamb M.D.
[2017-05-16] MEDS ORDERED: ASPCH81X PO (09:35)
== END 2017-02-15 11:40 | disposition home or self-care (01) | DRG 313 ==
LOC: ENRESERVTM → ENRESERVDT → C.EDB 17:45 → C.2T 20:22
PROVIDERS: ADMIT Hospitalist; ATTEND Hospitalist
DX: R07.89 Other chest pain (principal); M54.6 Pain in thoracic spine; R94.31 Abnormal electrocardiogram [ECG] [EKG]; I34.0 Nonrheumatic mitral (valve) insufficiency; I25.10 Atherosclerotic heart disease of native coronary artery without angina pectoris; I10 Essential (primary) hypertension; E11.42 Type 2 diabetes mellitus with diabetic polyneuropathy; E78.00 Pure hypercholesterolemia, unspecified; E78.5 Hyperlipidemia, unspecified; F41.9 Anxiety disorder, unspecified; G89.29 Other chronic pain; Z86.79 Personal history of other diseases of the circulatory system; Z79.4 Long term (current) use of insulin; Z79.84 Long term (current) use of oral hypoglycemic drugs; Z79.82 Long term (current) use of aspirin; Z79.891 Long term (current) use of opiate analgesic; Z79.899 Other long term (current) drug therapy

== ENCOUNTER → 2017-02-27 | Outpatient (CLI) | payer BC ==
[~2017-02-27] MED LIST changes: +ASPCH81X PO; -HYDR-5688 PO; +TRAM-10 PO
--- NOTE | 2017-02-27 11:58 | DIAGNOSTIC IMAGING REPORT ---
THORACIC SPINE 3 VIEWS ROUTINE CLINICAL HISTORY: THORACIC BACK PAIN COMPARISON STUDY: No previous studies for comparison. FINDINGS: There is a mild scoliosis. No acute fractures are visualized. There are mild multilevel endplate irregularities, likely chronic. IMPRESSION: Mild scoliosis and mild multilevel degenerative change. No acute fractures identified on conventional radiographic imaging Electronically signed by: Flash Strogn M.D. 02/27/2017 11:56 AM Dictated Date/Time: 02/27/2017 11:55 AM
== END | disposition home or self-care (01) ==
LOC: C.RADPV 11:34
PROVIDERS: ATTEND Physician Assistant Medical
DX: M54.6 Pain in thoracic spine (principal)

== ENCOUNTER → 2017-05-29 | Day surgery (SDC) | payer BC ==
[2016-10-11 14:40] VITALS: BMI 31.0
[2017-05-16 09:36] VITALS: Ht 170.2 cm; Wt 90.9 kg
[~2017-05-29] VITALS: Ht 170.2 cm; Wt 90.9 kg
[~2017-05-29] MED LIST changes: -ASPI325T39 PO; -CRG125 PO; +ENDOSCOPIC MARKER 5 ML SYR ONE; +LIDOCAINE HCL 2% 2 ML VIAL (20MG/ML) ONE; -MULT-506 PO; +PHENYLEPHRINE 100MCG/ML 5ML SYR ONE; +PROPOFOL IV EMULSION 10 MG/ML 20 ML VIAL IV ONE; +SODIUM CHLORIDE 0.9% 500ML 500 ML IV ONE
--- NOTE | 2017-05-29 10:43 | Endo History and Physical ---
History & Physical Date of Service: May 29, 2017. Chief Complaint: Screening Referring Physician: Dr. Lamb History of Present Illness 62 yo CM who presents for screening colonoscopy. Past Surgical History Hx Cardiac Surgery: Yes (HEART CATH, NO STENT) Hx Internal Defibrillator: No Hx Pacemaker: No Hx Abdominal Surgery: No Hx of Implantable Prosthesis: No Hx Post-Op Nausea and Vomiting: No Hx Cancer Surgery: Yes (SKIN CANCER REMOVAL FROM HEAD) Hx Thoracic Surgery: No Hx Orthopedic: Yes (LT FOOT SURGERY) Hx Urinary Tract Surgery: No Family History None Social History Smoking Status: Never Smoker Hx Substance Use: No Hx Alcohol Use: Yes (QUIT 1986) Allergies Coded Allergies: No Known Allergies (Unverified , 05/16/17) Current Medications Reported Home Medications Medications Dose Route/Sig Max Daily Dose Days Date Category Dose Instructions Aspirin Chewable (Aspirin) 81 Mg Chew 81 Mg PO QPM 05/16/17 Reported Ultram (Tramadol HCl) 50 Mg Tab 50 Mg PO Q8H PRN 02/14/17 Reported Indocin (Indomethacin) 50 Mg Cap 50 Mg PO TID PRN 10/20/16 Reported TAKE THIS MEDICATION WITH FOOD Levemir Flextouch (Insulin Detemir) 100 Unit/Ml Inj 20 Units SC QAM 10/20/16 Reported Atorvastatin Calcium (Atorvastatin) 10 Mg Tab 10 Mg PO HS 10/20/16 Reported Lisinopril 10 Mg Tab 10 Mg PO QPM 10/20/16 Reported Glucophage (Metformin Hcl) 1,000 Mg Tab 1,000 Mg PO BIDM 10/20/16 Reported Lorazepam 0.5 Mg Tab 0.5 Mg PO Q8 PRN 09/16/14 Reported Furosemide 40 Mg Tab 40 Mg PO QPM 09/16/14 Reported Vital Signs Weight (Kilograms): 90.91 Height (Feet): 5 Height (Inches): 7 Physical Exam General Appearance: WD/WN, no apparent distress Respiratory/Chest: Auscultation: breath sounds normal Cardiovascular: Heart Auscultation: RRR Abdomen: Bowel Sounds: normal Inspection & Palpation: soft, non-distended, no tenderness, guarding & rebound Assessment and Plan Assessment: 62 yo CM who presents for screening colonoscopy. Plan: Proceed with colonoscopy.
--- NOTE | 2017-05-29 12:21 | GI REPORT ---
Procedure Date: 05/29/2017 11:36 AM Procedure: Colonoscopy Indications: Screening for colorectal malignant neoplasm Medicines: Monitored Anesthesia Care Complications: No immediate complications. Estimated Blood Loss: Estimated blood loss: none. Procedure: Pre-Anesthesia Assessment: - Prior to the procedure, a History and Physical was performed, and patient medications and allergies were reviewed. The patient's tolerance of previous anesthesia was also reviewed. The risks and benefits of the procedure and the sedation options and risks were discussed with the patient. All questions were answered, and informed consent was obtained. Prior Anticoagulants: The patient has taken no previous anticoagulant or antiplatelet agents. ASA Grade Assessment: II - A patient with mild systemic disease. After reviewing the risks and benefits, the patient was deemed in satisfactory condition to undergo the procedure. After I obtained informed consent, the scope was passed under direct vision. Throughout the procedure, the patient's blood pressure, pulse, and oxygen saturations were monitored continuously. The scope was introduced through the anus and advanced to the terminal ileum. The colonoscopy was performed without difficulty. The patient tolerated the procedure well. The quality of the bowel preparation was good. The terminal ileum, ileocecal valve, appendiceal orifice, and rectum were photographed. Findings: Four sessile polyps were found in the sigmoid colon, in the transverse colon and in the ascending colon. The polyps were 5 to 8 mm in size. These polyps were removed with a hot snare. Resection and retrieval were complete. A 14 mm polyp was found in the ascending colon. The polyp was flat. The polyp was removed with a piecemeal technique using a hot snare. Resection and retrieval were complete. Area was tattooed with an injection of 5 mL of Christine ink. To prevent bleeding after the polypectomy, three hemostatic clips were successfully placed (MR conditional). There was no bleeding at the end of the procedure. Non-bleeding internal hemorrhoids were found during retroflexion. The hemorrhoids were small. Impression: - Four 5 to 8 mm polyps in the sigmoid colon, in the transverse colon and in the ascending colon, removed with a hot snare. Resected and retrieved. - One 14 mm polyp in the ascending colon, removed piecemeal using a hot snare. Resected and retrieved. Tattooed. Clips (MR conditional) were placed. - Non-bleeding internal hemorrhoids. Recommendation: - Resume previous diet. - Continue present medications. - Repeat colonoscopy for surveillance based on pathology results. - Return to primary care physician as previously scheduled. Tadeo Isbell, DO 05/29/2017 12:21:20 PM This report has been signed electronically. Note Initiated On: 05/29/2017 11:36 AM I attest to the content of the Intraoperative Record and orders documented therein, exceptions below
--- NOTE | 2017-05-29 12:44 | Anesthesiology Progress Note ---
Anesthesia Post Op Note Date & Time May 29, 2017 at 12:44 Vital Signs Pain Intensity: 0 Vital Signs Past 12 Hours Date Time Temp Pulse Resp B/P (MAP) Pulse Ox O2 Delivery O2 Flow Rate FiO2 05/29/17 12:35 76 16 117/77 (90) 96 Room Air 05/29/17 12:20 36.5 80 16 93/58 (70) 96 Room Air 05/29/17 10:42 36.5 77 18 98/68 (78) 97 Room Air Notes Mental Status: alert / awake / arousable, participated in evaluation Pt Amnestic to Procedure: Yes Nausea / Vomiting: adequately controlled Pain: adequately controlled Airway Patency, RR, SpO2: stable & adequate BP & HR: stable & adequate Hydration State: stable & adequate Anesthetic Complications: no major complications apparent
[2017-05-29 12:50] VITALS: BP 120/70; PULSE 73; O2SAT 96
--- NOTE | 2017-05-29 13:05 | Discharge Instructions ---
Endoscopy Patient Instructions Date / Procedure(s) Performed May 29, 2017. Colonoscopy Allergy Information Coded Allergies: No Known Allergies (Unverified , 05/16/17) Discharge Date / Findings May 29, 2017. Colon polyps Internal hemorrhoids Medication Instructions Stopped Medication(s): Metformin OK to resume all medications today as prescribed Reported Home Medications Medications Dose Route/Sig Max Daily Dose Days Date Category Dose Instructions Aspirin Chewable (Aspirin) 81 Mg Chew 81 Mg PO QPM 05/16/17 Reported Ultram (Tramadol HCl) 50 Mg Tab 50 Mg PO Q8H PRN 02/14/17 Reported Indocin (Indomethacin) 50 Mg Cap 50 Mg PO TID PRN 10/20/16 Reported TAKE THIS MEDICATION WITH FOOD Levemir Flextouch (Insulin Detemir) 100 Unit/Ml Inj 20 Units SC QAM 10/20/16 Reported Atorvastatin Calcium (Atorvastatin) 10 Mg Tab 10 Mg PO HS 10/20/16 Reported Lisinopril 10 Mg Tab 10 Mg PO QPM 10/20/16 Reported Glucophage (Metformin Hcl) 1,000 Mg Tab 1,000 Mg PO BIDM 10/20/16 Reported Lorazepam 0.5 Mg Tab 0.5 Mg PO Q8 PRN 09/16/14 Reported Furosemide 40 Mg Tab 40 Mg PO QPM 09/16/14 Reported Provider Instructions Activity Restrictions - No exercising or heavy lifting for 24 hours. - Do not drink alcohol the day of the procedure. - Do not drive a car or operate machinery until the day after the procedure. - Do not make any important decisions or sign important papers in 24 hours after the procedure. Following Day: - Return to full activity which may include returning to work/school. Diet Start your diet with liquids and light foods (jello, soup, juice, toast). Then eat your usual diet if not nauseated. Treatment For Common After Affects For mild abdominal pain, bloating, or excessive gas: - Rest - Eat lightly - Lie on right side Follow-Up Information Follow-up with Mateo Lamb as scheduled Anesthesia Information What You Should Know You have had a procedure that required some medicine to reduce anxiety and discomfort. This treatment is called moderate sedation. After receiving the treatment, you may be sleepy, but you will be able to breathe on your own. The effects of the treatment may last for several hours. Follow these instructions along with Activity/Diet recommendations noted above: * Do NOT do anything where dizziness or clumsiness would be dangerous. * Rest quietly at home today, then you can be up and about tomorrow. * Have a responsible person stay with you the rest of today. * You may have had an I.V. today. If so, you may take the dressing off later today. Recommendations Call your doctor if: * Trouble breathing * Continuous vomiting for more than 24 hours * Temperature above 101 degrees * Severe abdominal pain or bloating * Pain not relieved by pain medicine ordered * There is increased drainage or redness from any incision * A large amount of rectal bleeding greater than 2-3 tablespoons. (If you had a polyp/s removed or have hemorrhoids, a small amount of blood - from the rectum is to be expected.) * You have any unanswered questions or concerns. IN THE EVENT OF A SERIOUS EMERGENCY, GO TO THE NEAREST EMERGENCY ROOM Your discharge instructions were prepared by provider Tadeo Isbell. Patient Instructions Signature Page Reynaldo Sauceda Patient (or Guardian) Signature/Date: I have read and understand the instructions given to me by my caregivers. Caregiver/RN/Doctor Signature/Date: The above-named patient and/or guardian has received patient instructions on this date. + Original Patient Signature Page (only) stays with chart. Please make copy for patient.
== END | disposition home or self-care (01) ==
LOC: C.GI 09:36
PROVIDERS: ATTEND Internal Medicine
DX: Z12.11 Encounter for screening for malignant neoplasm of colon (principal); D12.5 Benign neoplasm of sigmoid colon; D12.3 Benign neoplasm of transverse colon; D12.2 Benign neoplasm of ascending colon; K64.8 Other hemorrhoids; Z85.820 Personal history of malignant melanoma of skin; Z79.82 Long term (current) use of aspirin; Z79.84 Long term (current) use of oral hypoglycemic drugs; G47.33 Obstructive sleep apnea (adult) (pediatric); E11.9 Type 2 diabetes mellitus without complications; I10 Essential (primary) hypertension; K21.9 Gastro-esophageal reflux disease without esophagitis

== ENCOUNTER 2022-01-08 04:26 | Inpatient (IN) ==
--- NOTE | 2022-01-08 04:59 | Emergency Department Note ---
Impression & Plan Hypoxia ADMIT ED Provider Note HPI: The patient is a 66-year-old gentleman with history of hypertension, hyperlipidemia, anxiety, CHF with reduced ejection fraction approximately 45%, history of cardiomyopathy with reduced ejection fraction to 25% in 2011, nonobstructive coronary artery disease, presents to the emergency department today with chief complaint of worsening shortness of breath. Patient states that his shortness of breath has been going on for about the past month. He states that it seems to have acutely been worsening over the past several days. Patient states he does become more short of breath on exertion, states that he has had some chest "pressure" but he states is been ongoing for months, states it is relatively constant as well. States this is nothing new for him. On arrival here to the ED the patient is exhibiting some mild increased work of breathing, he does not exhibit any wheezing, he is saturating at 92% on room air and is otherwise hemodynamically stable. ROS: -Pulmonary: Shortness of breath -Cardio: Chest tightness *10 point review systems was conducted and is otherwise negative unless stated above *Outpatient medications and allergy history reviewed PE: General: Alert, NAD HEENT: Normocephalic, atraumatic Eyes: Extraocular eye movement is intact, no scleral erythema Pulmonary: Diminished breath sounds bilaterally without wheezing or crackles Cardio: Regular rate and rhythm GI: Abdomen is soft, nontender : No suprapubic tenderness MSK: No evidence of trauma or malformation of the extremities, no edema Skin: No evidence of rash Neuro: Alert, no focal deficits Psychiatric: Cooperative quality assurance monitor final: - An order was placed for continuous cardiac monitoring - Patient was noted to be in sinus rhythm with rate of 90 EKG: Rate: 94 Rhythm: Normal sinus rhythm Intervals: QRS 140 ms, otherwise within normal limits ST changes: No ST elevation Time: 0708 Medical Decision Making: Patient presented to the emergency department with some acute on chronic shortness of breath. He does have a history of CHF with reduced ejection fraction, previous history of a dilated cardiomyopathy but he does seem to have regained some function per his previous echoes to about 45%. Arrival here to the ED the patient does exhibit some mild increased work of breathing, he is maintaining his oxygen saturation at about 92% on room air initially. He denies any recent fever cough, states he does have some chronic chest "tightness". But states this is nothing new for him and he has had it for many months. Shortly after arrival IV was established, lab work obtained, troponin is negative x1, BNP is elevated greater than 2000, while here in the ED the patient did have episodes of hypoxia down to 81% at the lowest, he did respond well to nasal cannula oxygen to maintain his oxygen saturations at 92% above following nasal cannula being placed. Chest x-ray appears to be consistent with pulmonary edema with some cardiomegaly, I do suspect the patient's shortness of breath is likely secondary to an acute on chronic CHF exacerbation. He was therefore given IV Lasix for diuresis. COVID-19 testing was sent. Given his increased oxygen requirement I did recommend admission to which the patient was in agreement. Case was discussed with the on-call hospitalist, Dr. Nava, patient was admitted in stable condition for further care. * CRITICAL CARE TIME: (35) minutes -Stabilization of hypoxia with oxygen saturations less than 90% on room air requiring supplemental oxygen via nasal cannula for improvement, time spent at the bedside, interpretation of diagnostic studies, discussion with other healthcare providers and arrangement of admission Diagnosis: 1. Hypoxia secondary to acute on chronic systolic CHF exacerbation 2. Acute dyspnea 3. Nonspecific chest discomfort Disposition: ADMIT Josemanuel Black, DO Emergency Medicine Past Med/Surg History Medical History Anxiety Chronic back pain 1 CRUSHED DISC Chronic low back pain Diabetes mellitus, type 2 GERD (gastroesophageal reflux disease) Gout Hyperlipidemia Hypertension Lumbar radicular pain Osteoarthritis Pain, dental Polyneuropathy Post traumatic stress disorder Skin cancer of forehead 2016 REMOVED IN OFFICE Sleep apnea UNABLE TO TOLERATE CPAP Tubular adenoma of colon Surgical History H/O foot surgery History of cardiac cath 2013 NO STENT FOLLOWS W DR. 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 Required: No Beliefs That Will Affect Care: None marital status: Current Living Situation: Spouse current occupational status: employed current occupation: [employer] How many Children do You have: 0 Feels Safe at Home: Yes Childhood Exposure to Second-Hand Smoke: Yes caffeine: Yes (Coffee ) Dental Care, Regularly: No Physical Activity Frequency: Does not Exercise Seatbelt Use: always Sunscreen Use: No Assistive Devices: Denture - Upper, Glasses, Hearing Aid - Bilateral and Special Shoe Allergies Allergies Allergy/AdvReac Type Severity Reaction Status Date / Time No Known Allergies Allergy Verified 10/25/21 12:22 Home Meds Home Medications Medication Instructions Recorded Confirmed dark restrepo 2,400 mg PO BID 04/07/21 10/25/21 [facility] 10[facility]25[facility] Verio Reflect Meter) Previous Rx's Medication Instructions Recorded ondansetron HCl 4 mg tablet 4 mg PO QID PRN #10 tab 12/02/19 (Zofran) carvedilol 12.5 mg tablet 12.5 mg PO BID #180 tab 12/14/20 cyclobenzaprine 10 mg tablet 10 mg PO TID PRN #14 tab 03/08/21 blood sugar [facility] Verio test strips) lancets 30 gauge ([facility] e[facility] 05/03/21 Plus Lancet) lisinopril 10 mg tablet (Zestril) 10 mg PO HS #90 tab 06/27/21 atorvastatin 10 mg tablet 10 mg PO HS #90 tab 08/05/21 hydroxyzine HCl 25 mg tablet See Rx Instructions PO HS PRN #30 09/21/21 tab metformin 1,000 mg tablet 1,000 mg PO BID #60 tab 09/21/21 benzonatate 100 mg capsule 100 mg PO TID PRN #30 cap 10/17/21 glimepiride 2 mg tablet 2 mg PO DAILY #30 tab 11/03/21 sildenafil 50 mg tablet (Viagra) 50 mg PO DAILY PRN #30 tab 11/21/21 furosemide 20 mg tablet (Lasix) 20 mg PO DAILY #30 tab 11/30/21 lorazepam 0.5 mg tablet 0.5 mg PO Q8H PRN #30 tab 12/22/21 prednisone 20 mg tablet See Rx Instructions PO .COMPLEX 01/03/22 #30 tab albuterol sulfate 90 mcg/actuation 2 inh INHALATION Q6H #18 g 01/05/22 aerosol inhaler tramadol 50 mg tablet 50 - 100 mg PO Q6H PRN #40 tab 01/06/22 Results & Data (ED) Vital Signs Vital Signs - 24 hr 01/08/22 04:31 01/08/22 04:44 01/08/22 05:00 Temperature 36.8 C Temperature Source Temporal Artery Scan Pulse Rate 96 H Pulse Rate [Apical] Respiratory Rate 28 H Blood Pressure 152/105 H Blood Pressure [Right Arm] Blood Pressure Mean 120 Blood Pressure Mean [Right Arm] Blood Pressure Position Sitting Pulse Oximetry 93 95 95 Oxygen Delivery Method Room Air Room Air Room Air Oxygen Flow Rate Sepsis Recent Fever Within 48 Hours No Sepsis New/Unexplained Change in Mental Status N/A Sepsis Action Taken by Nursing No Action Required 01/08/22 06:17 Temperature Temperature Source Pulse Rate Pulse Rate [Apical] 87 Respiratory Rate 17 Blood Pressure Blood Pressure [Right Arm] 150/112 H Blood Pressure Mean Blood Pressure Mean [Right Arm] 124 Blood Pressure Position Pulse Oximetry 94 Oxygen Delivery Method Nasal Cannula Oxygen Flow Rate 3 Sepsis Recent Fever Within 48 Hours Sepsis New/Unexplained Change in Mental Status Sepsis Action Taken by Nursing Laboratory Data Result diagrams: 01/08/22 04:45 01/08/22 04:45 Lab Results 01/08/22 01/08/22 01/08/22 Range/Units 04:45 04:45 04:45 WBC 9.56 (4.8-10.8) K/uL RBC 4.15 L (4.7-6.1) M/uL Hgb 12.1 L (14.0-18.0) g/dL Hct 37.2 L (42-52) % MCV 89.6 (80-100) fL MCH 29.2 (25-34) pg MCHC 32.5 (32-36) g/dL RDW Std Deviation 52.1 H (36.4-46.3) fL RDW Coeff of Angelita 16.0 H (11.5-14.5) % Plt Count 205 (130-400) K/uL MPV 11.3 H (7.4-10.4) fL Immature Gran % (Auto) 0.3 % Neut % (Auto) 81.0 % Lymph % (Auto) 12.6 % Sanborn % (Auto) 5.4 % Eos % (Auto) 0.5 % Baso % (Auto) 0.2 % Neut # (Auto) 7.74 H (1.4-6.5) K/uL Lymph # (Auto) 1.20 (1.2-3.4) K/uL Sanborn # (Auto) 0.52 (0.11-0.59) K/uL Eos # (Auto) 0.05 (0-0.5) K/uL Baso # (Auto) 0.02 (0-0.2) K/uL Immature Gran # (Auto) 0.03 H (0.00-0.02) K/uL Absolute Nucleated RBC 0.02 H (0-0) K/uL Nucleated RBC % (auto) 0.2 % PT 12.0 (9.0-12.0) Seconds INR 1.1 (0.9-1.1) APTT 24.6 (21.0-31.0) Seconds PTT Ratio 0.9 VBG pH (7.36-7.41) VBG pCO2 (38-50) mmHg VBG pO2 mmHg VBG HCO3 mmol/L VBG O2 Saturation % VBG Base Excess mEq/L Barometric Pressure mm/Hg Sodium 138 (136-145) mmol/L Potassium 4.4 (3.5-5.1) mmol/L Chloride 106 (98-107) mmol/L Carbon Dioxide 21 (21-32) mmol/L Anion Gap 11 (3-11) BUN 29 H (6-23) mg/dl Creatinine 1.19 (0.6-1.4) mg/dl Est Cr Clr Drug Dosing 70.6 ml/min Est GFR ( Amer) 74.4 ml/min Est GFR (Non-Af Amer) 64.2 ml/min BUN/Creatinine Ratio 24.4 H (10-20) Glucose 216 H (70-99(Fasting)) mg/dl Calcium 8.5 (8.5-10.1) mg/dl Total Bilirubin 1.9 H (0.2-1.0) mg/dl AST 49 H (13-39) U/L ALT 95 H (7-52) U/L Alkaline Phosphatase 68 (34-104) U/L Troponin I 0.04 (0-0.04) ng/ml B-Natriuretic Peptide (0-100) pg/ml Total Protein 6.3 (6.0-8.3) gm/dl Albumin 4.2 (3.4-5.0) gm/dl Globulin 2.1 L (2.5-4.0) gm/dl Albumin/Globulin Ratio 2.0 (0.9-2) 01/08/22 01/08/22 Range/Units 05:12 Unknown WBC (4.8-10.8) K/uL RBC (4.7-6.1) M/uL Hgb (14.0-18.0) g/dL Hct (42-52) % MCV (80-100) fL MCH (25-34) pg MCHC (32-36) g/dL RDW Std Deviation (36.4-46.3) fL RDW Coeff of Angelita (11.5-14.5) % Plt Count (130-400) K/uL MPV (7.4-10.4) fL Immature Gran % (Auto) % Neut % (Auto) % Lymph % (Auto) % Sanborn % (Auto) % Eos % (Auto) % Baso % (Auto) % Neut # (Auto) (1.4-6.5) K/uL Lymph # (Auto) (1.2-3.4) K/uL Sanborn # (Auto) (0.11-0.59) K/uL Eos # (Auto) (0-0.5) K/uL Baso # (Auto) (0-0.2) K/uL Immature Gran # (Auto) (0.00-0.02) K/uL Absolute Nucleated RBC (0-0) K/uL Nucleated RBC % (auto) % PT (9.0-12.0) Seconds INR (0.9-1.1) APTT (21.0-31.0) Seconds PTT Ratio VBG pH 7.41 (7.36-7.41) VBG pCO2 37 L (38-50) mmHg VBG pO2 57 mmHg VBG HCO3 23 mmol/L VBG O2 Saturation 87.8 % VBG Base Excess -1.2 mEq/L Barometric Pressure 727.1 mm/Hg Sodium (136-145) mmol/L Potassium (3.5-5.1) mmol/L Chloride (98-107) mmol/L Carbon Dioxide (21-32) mmol/L Anion Gap (3-11) BUN (6-23) mg/dl Creatinine (0.6-1.4) mg/dl Est Cr Clr Drug Dosing ml/min Est GFR ( Amer) ml/min Est GFR (Non-Af Amer) ml/min BUN/Creatinine Ratio (10-20) Glucose (70-99(Fasting)) mg/dl Calcium (8.5-10.1) mg/dl Total Bilirubin (0.2-1.0) mg/dl AST (13-39) U/L ALT (7-52) U/L Alkaline Phosphatase (34-104) U/L Troponin I (0-0.04) ng/ml B-Natriuretic Peptide 2151 H (0-100) pg/ml Total Protein (6.0-8.3) gm/dl Albumin (3.4-5.0) gm/dl Globulin (2.5-4.0) gm/dl Albumin/Globulin Ratio (0.9-2) Administered Medications Discontinued Medications Furosemide (Furosemide 40 Mg/4 Ml Vial) 40 mg IV ONE ONE Stop: 01/08/22 06:01 Last Admin: 01/08/22 06:15 Dose: 40 mg Documented by: [id number] Discharge Plan Visit Data Chief Complaint: Shortness of Breath/Dyspnea Stated Complaint: SOB ED Provider: Josemanuel Black Discharge Problem: Hypoxia Forms Stand Alone Forms: [facility] [email or web address] Prescriptions Prescriptions: No Action dark restrepo 2,400 mg PO BID RF: 0 carvedilol 12.5 mg tablet 12.5 mg PO BID Qty: 180 RF: 3 (DME) OneTouch Verio test strips Strip See Rx Instructions .Route Qty: 100 RF: 0 (DME) lancets [OneTouch Delica Plus Lancet] 30 gauge misc See Rx Instructions .Route Qty: 100 RF: 0 lisinopril [Zestril] 10 mg tablet 10 mg PO HS Qty: 90 RF: 3 atorvastatin 10 mg tablet 10 mg PO HS Qty: 90 RF: 3 hydroxyzine HCl 25 mg tablet See Rx Instructions PO HS PRN (Reason: sleep) Qty: 30 RF: 0 metformin 1,000 mg tablet 1,000 mg PO BID Qty: 60 RF: 5 glimepiride 2 mg tablet 2 mg PO DAILY Qty: 30 RF: 11 sildenafil [Viagra] 50 mg tablet 50 mg PO DAILY PRN (Reason: sexual activity) Qty: 30 RF: 2 furosemide [Lasix] 20 mg tablet 20 mg PO DAILY Qty: 30 RF: 0 lorazepam 0.5 mg tablet 0.5 mg PO Q8H PRN (Reason: anxiety) Qty: 30 RF: 3 prednisone 20 mg tablet See Rx Instructions PO .COMPLEX Qty: 30 RF: 0 albuterol sulfate 90 mcg/actuation HFA aerosol inhaler 2 inh inhalation Q6H Qty: 18 RF: 2 tramadol 50 mg tablet 50 - 100 mg PO Q6H PRN (Reason: Pain) Qty: 40 RF: 0 ondansetron HCl [Zofran] 4 mg tablet 4 mg PO QID PRN (Reason: nausea and vomiting) Qty: 10 RF: 0 cyclobenzaprine 10 mg tablet 10 mg PO TID PRN (Reason: muscle spasm) Qty: 14 RF: 0 (DME) blood-glucose meter [OneTouch Verio Reflect Meter] Misc See Rx Instructions .Route RF: 0 benzonatate 100 mg capsule 100 mg PO TID PRN (Reason: cough) Qty: 30 RF: 0 Referrals Referrals: Estelita De La Paz MD [Primary Care Provider] -
[2022-01-08 05:02] LABS: Basophils # (auto) 0.02 K/uL (0-0.2); Basophils % (auto) 0.2 %; Eosinophils # (auto) 0.05 K/uL (0-0.5); Eosinophils % (auto) 0.5 %; Hematocrit (blood only) 37.2 % (42-52); Hemoglobin 12.1 g/dL (14.0-18.0); Immature Granulocytes # (auto) 0.03 K/uL (0.00-0.02); Immature Granulocytes % (auto) 0.3 %; Lymphocytes % (auto) 12.6 %; Mean Corpuscular Hemoglobin 29.2 pg (25-34); Mean Corpuscular Hgb Conc 32.5 g/dL (32-36); Mean Corpuscular Volume 89.6 fL (80-100); Mean Platelet Volume 11.3 fL (7.4-10.4); Monocytes # (auto) 0.52 K/uL (0.11-0.59); Monocytes % (auto) 5.4 %; Neutrophils # (auto) 7.74 K/uL (1.4-6.5); Nucleated RBC # (auto) 0.02 K/uL (0-0); Nucleated RBC % (auto) 0.2 %; Platelet Count 205 K/uL (130-400); RDW Standard Deviation 52.1 fL (36.4-46.3); Red Blood Count 4.15 M/uL (4.7-6.1); White Blood Count 9.56 K/uL (4.8-10.8)
[2022-01-08 05:12] LABS: INR 1.1 (0.9-1.1); Partial Thromboplastin Ratio 0.9; Partial Thromboplastin Time 24.6 Seconds (21.0-31.0)
[2022-01-08 05:27] LABS: Troponin I 0.04 ng/ml (0-0.04)
[2022-01-08 05:34] LABS: Albumin Level 4.2 gm/dl (3.4-5.0); BUN Creatinine Ratio 24.4 (10-20); Bilirubin,Total 1.9 mg/dl (0.2-1.0); Calcium 8.5 mg/dl (8.5-10.1); Creatinine Clr Calc Pharmacy 70.6 ml/min; Est GFR (African American) 74.4 ml/min; Est GFR (Non-African American) 64.2 ml/min; Globulin 2.1 gm/dl (2.5-4.0); Potassium 4.4 mmol/L (3.5-5.1); Total Protein 6.3 gm/dl (6.0-8.3)
[2022-01-08 05:48] LABS: Base Excess VBG -1.2 mEq/L; Oxygen Saturation VBG 87.8 %; pH VBG 7.41 (7.36-7.41)
[2022-01-08] MEDS ORDERED: FUROSEMIDE 40 MG/4 ML VIAL IV ONE (06:00)
[2022-01-08 07:25] LABS: Appearance Urine Clear (Clear); Bilirubin Urine Negative (Negative); Blood Urine Negative (Negative); Color Urine Yellow; Glucose Urine UA Negative (Negative); Ketones Urine Negative (Negative); Leukocyte Esterase Urine Negative (Negative); Nitrite Urine Negative (Negative); Protein Urine Negative (Negative); Specific Gravity Urine 1.006 (1.000-1.030); Urobilinogen Urine Negative (Negative); pH Urine 6.5 (4.5-7.5)
--- NOTE | 2022-01-08 07:42 | XRay Report ---
XR chest 1V portable HISTORY: Dyspnea COMPARISON: Chest 01/03/2022. FINDINGS: No pneumothorax. The heart remains moderately enlarged. There is interval progression of th e interstitial/vascular thickening consistent with developing pulmonary edema. No new focal lung cons olidations to suggest pneumonia. IMPRESSION: Cardiomegaly with developing interstitial pulmonary edema. This has progressed in the interval. ACT 112: Negative or not required by law. Electronically signed by: Reed Donahue M.D. 01/08/2022 7:41 AM
[2022-01-08 07:49] LABS: Influenza A virus by PCR Negative (Neg); Influenza B virus by PCR Negative (Neg); RSV by PCR Negative (Neg); SARS CoV2 RNA(COVID-19) InHosp NEGATIVE (Negative)
[2022-01-08] MEDS ORDERED: GLUCAGON FOR INJ 1 MG VIAL SQ PRN (09:31)
[2022-01-08] MEDS ORDERED: CARBOHYDRATES FOR HYPOGLYCEMIA PO PRN (09:31)
[2022-01-08] MEDS ORDERED: GLUCOSE 10 TABS/TUBE PO PRN (09:31)
[2022-01-08] MEDS ORDERED: traMADol HCL 50 MG TABLET PO PRN (09:31)
[2022-01-08] MEDS ORDERED: LORazepam 0.5 MG TAB PO PRN (09:31)
[2022-01-08] MEDS ORDERED: NITROGLYCERIN SL 0.4 MG/TAB TAB SL PRN (09:31)
[2022-01-08] MEDS ORDERED: GLUCOSE 40% GEL 15 GM TUBE PO PRN (09:31)
[2022-01-08] MEDS ORDERED: ONDANSETRON INJ 2 MG/ML 2 ML VIAL IV PRN (09:31)
[2022-01-08] MEDS ORDERED: DEXTROSE 50% 50 ML SYRINGE IV PRN (09:31)
[2022-01-08] MEDS ORDERED: ALUMINUM/MAGNESIUM SUSP 30 ML UDC PO PRN (09:31)
[2022-01-08] MEDS ORDERED: ACETAMINOPHEN 325 MG TAB PO PRN (09:31)
[2022-01-08] MEDS: ASPIRIN 81 MG ECTAB PO SCH (10:24)
[2022-01-08] MEDS: carvediloL 12.5 MG TAB PO SCH ×2 (10:24→20:54)
--- NOTE | 2022-01-08 11:19 | Electrocardiogram Report ---
Test Reason : Blood Pressure : / mmHG Vent. Rate : 094 BPM Atrial Rate : 094 BPM P-R Int : 158 ms QRS Dur : 140 ms QT Int : 380 ms P-R-T Axes : 063 -34 112 degrees QTc Int : 475 ms Normal sinus rhythm Possible Left atrial enlargement Left axis deviation Left bundle branch block Abnormal ECG When compared with ECG of 09-SEP-2021 20:23, Premature ventricular complexes are no longer Present Confirmed by Jorge Ardon ([id number]) on 01/08/2022 11:18:44 AM Referred By: REFERRED SELF Confirmed By:Jorge Ardon
--- NOTE | 2022-01-08 11:37 | XCELERA ---
[id number]
[2022-01-08] MEDS: INSULIN ASPART PER UNIT SC SCH ×3 (11:46→20:56)
[2022-01-08] MEDS: ENOXAPARIN INJ 40 MG/0.4 ML SYR SQ SCH (12:03)
--- NOTE | 2022-01-08 14:38 | History & Physical Report ---
Date of Service January 08, 2022 Assessment & Plan (1) Acute systolic heart failure: Plan: Patient presents with acute systolic heart failure who was rescued in the ER with diuresis. Patient has no evidence of troponin leak left bundle branch block is present which is a slight change we brought in our facility continue to by diuresed have a cardiology consultation echocardiogram was performed and troponin will be trended we started on low-dose aspirin Patient made a low-salt diet likely engaged with the heart failure clinic (2) Diabetes: Plan: Patient's oral medication will be held he put on sliding scale insulin but not at basal insulin unless required to be on a diabetic diet (3) Hypertension: Plan: For the patient's history of hypertension to maintain his carvedilol and lisinopril. He was given diuretic as mentioned (4) Hyperlipemia: Plan: Patient maintained on low-dose atorvastatin fasting lipids will be checked in the morning (5) DVT prophylaxis: Plan: Lovenox for DVT prevention Admission and Anticipated Discharge Date Admission Date: January 08, 2022 History of Present Illness Primary Care Provider: Estelita De La Paz MD 66-year-old male with a history of heart failure reduced ejection fraction pre sents to the ER with worsening shortness of breath. Patient was seen by his primary care office approximately January 03 where chest x-ray was performed and without significant heart failure he was prescribed a steroid taper for concern this was COPD exacerbation. Patient presents now today with what looks like a CHF exacerbation or acute systolic heart failure exacerbation with chest x-ray changes elevated BNP hypoxia with tachypnea suggesting acute hypoxic respiratory failure. He was given diuresis in the ER and improved dramatically his hypoxia was supplemented easily with nasal cannula oxygen and is recommended for admission to treat his acute systolic heart failure. In the ER Covid testing was negative, opponent was negative and EKG was without acute changes although left bundle branch block is present Allergies Allergy/AdvReac Type Severity Reaction Status Date / Time No Known Allergies Allergy Verified 01/08/22 07:40 Home Medications Medication Instructions Recorded Confirmed Type carvedilol 12.5 mg tablet 12.5 mg PO BID #180 tab 12/14/20 01/08/22 Rx dark restrepo 2,400 mg PO BID 04/07/21 01/08/22 History blood sugar diagnostic ([facility] #[facility] ea 05/03/21 10/25/21 Rx Verio test strips) lancets 30 gauge (OneTouch Delica #100 ea 05/03/21 10/25/21 Rx Plus Lancet) atorvastatin 10 mg tablet 10 mg PO HS #90 tab 08/05/21 01/08/22 Rx blood-glucose meter (OneTouch ea 08/09/21 10/25/21 History Verio Reflect Meter) metformin 1,000 mg tablet 1,000 mg PO BID #60 tab 09/21/21 01/08/22 Rx lorazepam 0.5 mg tablet 0.5 mg PO Q8H PRN #30 tab 12/22/21 01/08/22 Rx prednisone 20 mg tablet See Rx Instructions PO .COMPLEX 01/03/22 01/08/22 Rx #30 tab albuterol sulfate 90 mcg/actuation 2 inh INHALATION Q6H #18 g 01/05/22 01/08/22 Rx aerosol inhaler tramadol 50 mg tablet 50 - 100 mg PO Q6H PRN #40 tab 01/06/22 01/08/22 Rx ergocalciferol (vitamin D2) 1,250 50,000 unit PO WK 01/08/22 01/08/22 History mcg (50,000 unit) capsule glimepiride 2 mg tablet 2 mg PO QAM 01/08/22 01/08/22 History furosemide 20 mg tablet (Lasix) 20 mg PO QAM #30 tab 01/09/22 Rx lisinopril 10 mg tablet 10 mg PO DAILY #30 tab 01/09/22 Rx Past Med/Surg History Medical History Anxiety Chronic back pain 1 CRUSHED DISC Chronic low back pain Diabetes mellitus, type 2 GERD (gastroesophageal reflux disease) Gout Hyperlipidemia Hypertension Lumbar radicular pain Osteoarthritis Pain, dental Polyneuropathy Post traumatic stress disorder Skin cancer of forehead 2016 REMOVED IN OFFICE Sleep apnea UNABLE TO TOLERATE CPAP Tubular adenoma of colon Surgical History H/O foot surgery History of cardiac cath 2014 NO STENT FOLLOWS W DR. MCBRIDE History of colonoscopy with polypectomy Family History Family/Other Family history of diabetes mellitus Alcoholism Heart disease Brother Alcoholism Myocardial infarction Mother Heart disease Father Lung cancer Denies family history of Ovarian cancer Prostate cancer Breast cancer Colorectal cancer Social History Smoking Status: Never smoker Tobacco Type: Cigarettes Second Hand Exposure: Yes; Hx Alcohol Use: Yes Alcohol type: beer Hx Substance Use: No Preferred Language: French Communication Ability: Effective Collar Packer Required: No Beliefs That Will Affect Care: None marital status: Current Living Situation: Spouse current occupational status: employed current occupation: [employer] How many Children do You have: 0 Feels Safe at Home: Yes Childhood Exposure to Second-Hand Smoke: Yes caffeine: Yes (Coffee ) Dental Care, Regularly: No Physical Activity Frequency: Does not Exercise Seatbelt Use: always Sunscreen Use: No Assistive Devices: Denture - Upper and Glasses Review of Systems Review of Systems: Moderate respiratory distress and fatigue no headache, no visual changes no speech or swallowing issues no chest pain, pressure or palpitations Dyspnea exertion and nonproductive cough no abdominal pain, nausea or vomiting, diarrhea or constipation no dysuria, hematuria or frequency no focal joint pain or significant lower extremity swelling no back pain, CVA tenderness or radicular pain no bruising, bleeding or rashes no focal signs of weakness or numbness or altered sensation no complaints of anxiety or depression.. Physical Exam Physical Exam: The patient appeared well nourished and normally developed. Vital signs as documented. Head exam is normocephalic atraumatic Neck is without JVD (patient had already received diuresis in the ER) thyromegaly, or carotid bruits. Lungs are basilar rales otherwise poor air movement Cardiac exam, Rhythm is regular.. No significant murmurs, rubs or gallops. Abdominal exam reveals normal bowel sounds, soft non tender, no masses Extremities are trace edematous and both pedal pulses are present Neurologic exam is alert and oriented, no focal loss of strength or sensation Skin is without bruises or rashes Psychologically is without concerns for anxiety or depression.. Results & Data Results & Data ([facility]) Vital Signs (Past 12 Hours) Vital Signs Temp Pulse Pulse Resp BP BP Pulse Ox 01/08/22 11:11 97.7 F 78 19 131/79 97 01/08/22 10:24 97.5 F L 89 18 138/94 98 01/08/22 10:20 87 01/08/22 09:31 01/08/22 09:25 97.5 F L 85 20 138/94 99 01/08/22 09:05 97.7 F 89 20 144/78 H 98 01/08/22 08:40 88 95 01/08/22 08:30 87 96 01/08/22 08:20 87 97 01/08/22 08:10 81 95 01/08/22 08:00 86 96 01/08/22 07:50 84 96 01/08/22 07:40 95 H 96 01/08/22 07:30 85 97 01/08/22 07:20 84 97 01/08/22 07:10 97 01/08/22 07:00 18 95 01/08/22 06:50 16 95 01/08/22 06:40 81 L 01/08/22 06:30 15 93 01/08/22 06:20 90 20 95 01/08/22 06:17 87 17 150/112 H 94 01/08/22 06:14 91 H 23 150/112 H 94 01/08/22 06:10 85 18 97 01/08/22 06:00 87 40 H 97 01/08/22 05:50 87 13 97 01/08/22 05:40 91 H 29 H 86 L 01/08/22 05:30 92 H 22 91 01/08/22 05:20 94 H 25 H 85 L 01/08/22 05:10 88 17 93 01/08/22 05:00 94 H 24 89 L 01/08/22 04:50 92 H 22 95 01/08/22 04:45 94 H 24 94 01/08/22 04:44 95 01/08/22 04:31 98.2 F 96 H 28 H 152/105 H 93 Pulse Ox 01/08/22 11:11 01/08/22 10:24 01/08/22 10:20 01/08/22 09:31 99 01/08/22 09:25 01/08/22 09:05 01/08/22 08:40 01/08/22 08:30 01/08/22 08:20 01/08/22 08:10 01/08/22 08:00 01/08/22 07:50 01/08/22 07:40 01/08/22 07:30 01/08/22 07:20 01/08/22 07:10 01/08/22 07:00 01/08/22 06:50 01/08/22 06:40 01/08/22 06:30 01/08/22 06:20 01/08/22 06:17 01/08/22 06:14 01/08/22 06:10 01/08/22 06:00 01/08/22 05:50 01/08/22 05:40 01/08/22 05:30 01/08/22 05:20 01/08/22 05:10 01/08/22 05:00 01/08/22 04:50 01/08/22 04:45 01/08/22 04:44 01/08/22 04:31 Diagnostic Findings Chest X-Ray 01/08/22 04:44 XR chest 1V portable HISTORY: Dyspnea COMPARISON: Chest 01/03/2022. FINDINGS: No pneumothorax. The heart remains moderately enlarged. There is interval progression of the interstitial/vascular thickening consistent with developing pulmonary edema. No new focal lung consolidations to suggest pneumonia. IMPRESSION: Cardiomegaly with developing interstitial pulmonary edema. This has progressed in the interval. ACT 112: Negative or not required by law. Electronically signed by: Reed Donahue M.D. 01/08/2022 7:41 AM ECG Additional Comments: Sinus rhythm with left bundle branch block Code Status & VTE Plan VTE Prophylaxis Plan VTE Prophylaxis will be ordered: Yes PG Care Time/CCT Total # of Minutes Spent Total Time Spent with Patient: Total time spent is greater than 50% in coordination of care (as documented) at patient's floor/unit and/or counseling patient: Coding Level of Care Code 75292 Initial Inpt Care Lvl 3 Diagnoses Diabetes E11.9 Hypertension I10 Hyperlipemia E78.5 Acute systolic heart failure I50.21 DVT prophylaxis Z29.9
[2022-01-08] MEDS ORDERED: FUROSEMIDE INJ 20 MG/2 ML VIAL IV ONE (14:44)
[2022-01-08] MEDS ORDERED: ATORVASTATIN 10 MG TAB PO SCH (21:00)
[2022-01-08] MEDS ORDERED: lisinopril 10 MG TAB PO SCH (21:00)
[2022-01-09 06:57] LABS: BUN Creatinine Ratio 29.6 (10-20); Calcium 8.7 mg/dl (8.5-10.1); Creatinine Clr Calc Pharmacy 74.7 ml/min; Est GFR (African American) 83.6 ml/min; Est GFR (Non-African American) 72.2 ml/min; Magnesium 2.1 mg/dl (1.7-2.4); Potassium 3.6 mmol/L (3.5-5.1)
[2022-01-09 07:13] LABS: Estimated Average Glucose 134 mg/dl; Hemoglobin A1C 6.3 % (4.5-5.6)
[2022-01-09] MEDS: INSULIN ASPART PER UNIT SC SCH ×2 (08:06→12:25)
[2022-01-09] MEDS: ENOXAPARIN INJ 40 MG/0.4 ML SYR SQ SCH (08:07)
[2022-01-09] MEDS: carvediloL 12.5 MG TAB PO SCH (08:07)
[2022-01-09] MEDS: ASPIRIN 81 MG ECTAB PO SCH (08:07)
[2022-01-09] MEDS ORDERED: FUROSEMIDE 40 MG TAB PO SCH (09:00)
--- NOTE | 2022-01-09 13:47 | Cardiology Consultation ---
Date of Consultation January 09, 2022 Assessment & Plan (1) Acute systolic heart failure: -likely secondary to dietary indiscretion with salt. -self discontination of Lasix 1 month ago. -has not been using CPAP mask at night. -has responded well to intravenous Lasix. -consider uptitration of carvedilol. -consider Entresto in place of lisinopril. -salt and fluid restrictions. -instructed on daily weights and sliding-scale diuretics. (2) Cardiomyopathy: -ejection fraction now significantly decreased at 25 to 30% -medical management as outlined above. (3) CAD (coronary artery disease): -nonobstructive disease at time of catheterization in July 2011. -continue medical management. (4) Hypertension: -adequate control on current regimen. (5) Hyperlipemia: -continue atorvastatin. (6) Abnormal EKG: History of Present Illness Attending Physician: Tom Nava MD History of Present Illness Mr. Sauceda is a 66-year-old male admitted yesterday in decompensated systolic CHF. This consultation was ordered to assist in his cardiac management. Of note, patient is well known to me from the outpatient setting. The patient was in his usual state of health until approximately 4-5 days prior to presentation. He began to note progressive exertional dyspnea along with lower extremity edema. Experienced increasing orthopnea and several episodes of PND. The patient presented to the emergency room for further evaluation. The patient admits to noncompliance with a salt restricted diet. He currently works at the [employer] and eats restaurant type food for every meal. He also stopped using his diuretic approximately 1 month ago as he felt that he did not need it anymore. He admits to noncompliance with his CPAP machine at night. He also carries a history of dilated, nonischemic cardiomyopathy. He underwent a cardiac catheterization to workup his left ventricular dysfunction back in July 2011. This noted nonobstructive disease. His ejection fraction has varied from 20/5 up to 50%. Currently, patient is resting comfortably in bed without complaints. Past medical and surgical history 1. Nonobstructive coronary artery disease-July 2011 2. Dilated cardiomyopathy 3. Chronic systolic CHF 4. Hypertension 5. Hypercholesterolemia 6. Diabetes mellitus 7. GERD 8. Gout 9. Obstructive sleep apnea 10. Generalize peripheral neuropathy 11. Anxiety 12. Colonic polyps 13. Chronic low back pain Social history and lives with his . Works at the [employer]. No tobacco alcohol Family history Noncontributory Review of systems A 10 review systems was undertaken and negative except for that described above. Allergies Allergy/AdvReac Type Severity Reaction Status Date / Time No Known Allergies Allergy Verified 01/08/22 07:40 Home Medications Medication Instructions Recorded Confirmed Type carvedilol 12.5 mg tablet 12.5 mg PO BID #180 tab 12/14/20 01/08/22 Rx dark restrepo 2,400 mg PO BID 04/07/21 01/08/22 History blood sugar diagnostic (OneTouch #100 ea 05/03/21 10/25/21 Rx Verio test strips) lancets 30 gauge (OneTouch Delica #100 ea 05/03/21 10/25/21 Rx Plus Lancet) atorvastatin 10 mg tablet 10 mg PO HS #90 tab 08/05/21 01/08/22 Rx blood-glucose meter (OneTouch ea 08/09/21 10/25/21 History Verio Reflect Meter) metformin 1,000 mg tablet 1,000 mg PO BID #60 tab 09/21/21 01/08/22 Rx lorazepam 0.5 mg tablet 0.5 mg PO Q8H PRN #30 tab 12/22/21 01/08/22 Rx prednisone 20 mg tablet See Rx Instructions PO .COMPLEX 01/03/22 01/08/22 Rx #30 tab albuterol sulfate 90 mcg/actuation 2 inh INHALATION Q6H #18 g 01/05/22 01/08/22 Rx aerosol inhaler tramadol 50 mg tablet 50 - 100 mg PO Q6H PRN #40 tab 01/06/22 01/08/22 Rx ergocalciferol (vitamin D2) 1,250 50,000 unit PO WK 01/08/22 01/08/22 History mcg (50,000 unit) capsule glimepiride 2 mg tablet 2 mg PO QAM 01/08/22 01/08/22 History furosemide 20 mg tablet (Lasix) 20 mg PO QAM #30 tab 01/09/22 Rx lisinopril 10 mg tablet 10 mg PO DAILY #30 tab 01/09/22 Rx Patient History Medical History Anxiety Chronic back pain 1 CRUSHED DISC Chronic low back pain Diabetes mellitus, type 2 GERD (gastroesophageal reflux disease) Gout Hyperlipidemia Hypertension Lumbar radicular pain Osteoarthritis Pain, dental Polyneuropathy Post traumatic stress disorder Skin cancer of forehead 2016 REMOVED IN OFFICE Sleep apnea UNABLE TO TOLERATE CPAP Tubular adenoma of colon Surgical History H/O foot surgery History of cardiac cath [address] FOLLOWS W DR. MCBRIDE History of colonoscopy with polypectomy Family History Family/Other Family history of diabetes mellitus Alcoholism Heart disease Brother Alcoholism Myocardial infarction Mother Heart disease Father Lung cancer Denies family history of Ovarian cancer Prostate cancer Breast cancer Colorectal cancer Social History Smoking Status: Never smoker Tobacco Type: Cigarettes Second Hand Exposure: Yes; Hx Alcohol Use: Yes Alcohol type: beer Hx Substance Use: No Preferred Language: Turkmen Communication Ability: Effective Torch Brazer Required: No Beliefs That Will Affect Care: None marital status: Current Living Situation: Spouse current occupational status: employed 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 HEENT exam is negative. Neck is supple with full carotid upstrokes. There are no carotid bruits. No JVD. There is no thyromegaly. Cardiovascular exam reveals a regular rhythm with a normal S1 and S2. No S3, S4, or murmurs are noted. Lungs are clear without rales, rhonchi, or wheezes. Abdomen is soft and nontender without bruits. Extremities reveal intact radial arteries. There is no peripheral edema. Results & Data ([facility]) Vital Signs (Past 12 Hours) Vital Signs Temp Pulse Pulse Resp BP Pulse Ox 01/09/22 12:39 36.4 C L 70 19 92/53 L 95 01/09/22 11:14 36.4 C L 70 19 92/53 L 95 04/11/22 08:00 77 01/09/22 07:22 36.5 C 81 19 121/79 97 01/09/22 04:39 36.6 C 83 17 134/77 95 Laboratory Results CBC notes hemoglobin 12.1, crit 37.2, white count 9.56, and platelet count of [id number]. Electrolytes note a sodium of 141, potassium 3.6, chloride 102, bicarb 33, BUN 32, creatinine 1.08, and glucose of 135. Troponin I level is undetectable less than 0.03. BNP is elevated 1. Diagnostic Findings EKG notes normal sinus rhythm with a left axis deviation and a complete left bundle-branch block. Chest x-ray notes cardiomegaly and mild CHF. Echocardiogram notes moderate to severe left ventricular dysfunction with ejection fraction of 25-30%. There is moderate to severe global hypokinesis along with moderate mitral and moderate tricuspid regurgitation. Compared with the study done in October 2019, left ventricular systolic function is now significantly reduced. PG Care Time/CCT Total # of Minutes Spent Total Time Spent with Patient: Total time spent is greater than 50% in coordination of care (as documented) at patient's floor/unit and/or counseling patient: Coding Level of Care Code 94264 Office/OBS Consult Lvl 4 Diagnoses Acute systolic heart failure I50.21 Cardiomyopathy I42.9 CAD (coronary artery disease) I25.10 Hypertension I10 Hyperlipemia E78.5 Abnormal EKG R94.31
--- NOTE | 2022-01-09 18:08 | Discharge Summary ---
Date of Service January 09, 2022 Admission HPI Per Admitting Provider 66-year-old male with a history of heart failure reduced ejection fraction presents to the ER with worsening shortness of breath. Patient was seen by his primary care office approximately January 03 where chest x-ray was performed and without significant heart failure he was prescribed a steroid taper for concern this was COPD exacerbation. Patient presents now today with what looks like a CHF exacerbation or acute systolic heart failure exacerbation with chest x-ray changes elevated BNP hypoxia with tachypnea suggesting acute hypoxic respiratory failure. He was given diuresis in the ER and improved dramatically his hypoxia was supplemented easily with nasal cannula oxygen and is recommended for admission to treat his acute systolic heart failure. In the ER Covid testing was negative, opponent was negative and EKG was without acute changes although left bundle branch block is present Principal Diagnosis Acute on chronic systolic heart failure Discharge Exam The patient appeared well Vital signs as documented. Lungs are clear to auscultation and appear unlabored Cardiac exam, Rhythm is regular.. No murmurs, rubs or gallops. Abdominal exam reveals normal bowel sounds, soft non tender, no masses Extremities are nonedematous and both pedal pulses are normal. Neurologic exam is alert and oriented, no focal loss of strength or sensation Skin is without bruises or rashes Psychologically is without concerns for anxiety or depression. Discharge Data Allergies Allergy/AdvReac Type Severity Reaction Status Date / Time No Known Allergies Allergy Verified 01/08/22 07:40 Consultations 01/08/22 07:15 ED Decision to Admit Stat 01/08/22 14:45 Consult Cardiology Routine Hospital Course (1) Acute systolic heart failure: Patient presents with acute systolic heart failure who was rescued in the ER with diuresis. Patient has no evidence of troponin leak left bundle branch block is present which is a slight change we brought in our facility and diuresed cardiology consultation notes further depression of EF on echocardiogram recommended d/c and will discuss entresto as outpt, will keep on lisinipril and daily lasix but may get Entresto samples this week from clinic and stop lisinipril if started on entresto Patient made a low-salt diet likely engaged with the heart failure clinic (2) Diabetes: resume home meds, consider SGLT2 to also help with heart failure (3) Hypertension: For the patient's history of hypertension to maintain his carvedilol and lisinopril. daily lasix,amendments from cardiology (4) Hyperlipemia: Patient maintained on low-dose atorvastatin Total Time Total Time Spent Total Time Spent (In Minutes): It required greater than 30 minutes to prepare this patient for discharge Discharge Plan Discharge Items Patient Disposition: Home - Self-Care Reason For Visit: ACUTE SYSTOLIC HEART FAILURE,ACUTE RESP FAILURE Discharge Diagnosis: congestive heart failure Activity: Resume your previous activity Non-emergency contact: Primary Care Provider and Head End Desizing Machine Operator Call non-emergency contact if: your symptoms worsen Follow-up/Referrals: Zeeshan Clancy PA-C [Physician Digital Cartographer] - 01/10/22 3:00 pm Estelita De La Paz MD [Primary Care Provider] - 01/17/22 11:30 am Diet: Low Sodium (2gm) Addtl Attending Provider Instructions: Call 911 and go to the Emergency Room if: * You have tightness or pain in your chest that does not go away with rest or Nitroglycerin * You are very short of breath even with rest Call your doctor if any of the following symptoms or problems start or get worse: * Shortness of breath or difficulty breathing * Wake up at night short of breath * Chest pain * Cough * Swelling of your hands, fee, or legs * More fatigued or tired with your normal activity * Palpitations - sudden fast heart beats WEIGHT * Weigh yourself every morning after using the bathroom. * Use the same scale. * Wear the same amount of clothing. * Write your weight down on your chart. * Call your doctor if you gain more than 2-3 pounds in 1-2 days. MEDICATIONS * Use this discharge instruction sheet for instructions. * Take your medications at the time your doctor ordered. * Do not skip a dose of your medicines. * If you miss a dose of medicine, take as soon as possible, but DO NOT DOUBLE A DOSE. * Read your medicine information when you get home. * Know all of the side effects of your medicine. * Call your doctor's office if you have any side effects. * Be sure all of your doctors know what medicine and herbs you take (including cold, flu, and herbal medicine). * Pain Medicine: If you do not get relief from your pain, please call your doctor for help. Take the following with you to your follow-up doctor appointments: * Weight Chart * Medication List * List of questions Do not drink excessive alcohol, beer or wine. Addtl Track Rider Provider Instructions: when you go to pharmacy do not picking tech or take RX Maria Elena, Dr Malagon office will have samples for you at your appointment 01/10/22. there will be a rx for lasix there for you to get today. thanks. Pending Studies at Discharge: No Stand-Alone Forms: My [facility] StudyTube, Smoking Cessation Medications and DC Order Prescriptions: New lisinopril 10 mg Tablet 10 mg PO DAILY Qty: 30 RF: 0 Continued dark restrepo 2,400 mg PO BID RF: 0 carvedilol 12.5 mg tablet 12.5 mg PO BID Qty: 180 RF: 3 (DME) OneTouch Verio test strips Strip See Rx Instructions .Route Qty: 100 RF: 0 (DME) lancets [OneTouch Delica Plus Lancet] 30 gauge misc See Rx Instructions .Route Qty: 100 RF: 0 atorvastatin 10 mg tablet 10 mg PO HS Qty: 90 RF: 3 metformin 1,000 mg tablet 1,000 mg PO BID Qty: 60 RF: 5 lorazepam 0.5 mg tablet 0.5 mg PO Q8H PRN (Reason: anxiety) Qty: 30 RF: 3 prednisone 20 mg tablet See Rx Instructions PO .COMPLEX Qty: 30 RF: 0 albuterol sulfate 90 mcg/actuation HFA aerosol inhaler 2 inh inhalation Q6H Qty: 18 RF: 2 tramadol 50 mg tablet 50 - 100 mg PO Q6H PRN (Reason: Pain) Qty: 40 RF: 0 (DME) blood-glucose meter [OneTouch Verio Reflect Meter] Misc See Rx Instructions .Route RF: 0 ergocalciferol (vitamin D2) 1,250 mcg (50,000 unit) capsule 50,000 unit PO WK RF: 0 glimepiride 2 mg tablet 2 mg PO QAM RF: 0 Changed furosemide [Lasix] 20 mg tablet 20 mg PO QAM Qty: 30 RF: 6 Discontinued lisinopril [Zestril] 10 mg tablet 10 mg PO HS Qty: 90 RF: 3 sildenafil [Viagra] 50 mg tablet 50 mg PO DAILY PRN (Reason: sexual activity) Qty: 30 RF: 2 Discharge Orders: Discharge Order (Routine); Ordered 01/09/22 Ordered By: Tom Fontanez/Other Patient Handouts: Managing Type 2 Diabetes Admission Data Admit Date/Time: 01/08/22 07:42 Attending Provider: Tom Nava Admit Provider: Tom Nava Primary Care Provider: Estelita De La Paz Other Providers: Tom Nava ; Renan Garcia Other Interventions: Discharge Summary Assessment (RN) Last Done: 01/09/22 12:39 Coding Level of Care Code D/C DAY MANAGEMENT >30 MINS Diagnoses Acute systolic heart failure I50.21 Diabetes E11.9 Hypertension I10 Hyperlipemia E78.5
== END 2022-01-09 12:53 | disposition home or self-care (01) | DRG 291 ==
LOC: ED 04:26 → 2S 07:42

== ENCOUNTER 2022-02-25 23:56 | Inpatient (IN) ==
[2022-02-26 00:42] LABS: Basophils # (auto) 0.02 K/uL (0-0.2); Basophils % (auto) 0.2 %; Eosinophils # (auto) 0.18 K/uL (0-0.5); Hematocrit (blood only) 36.8 % (42-52); Hemoglobin 12.6 g/dL (14.0-18.0); Immature Granulocytes # (auto) 0.02 K/uL (0.00-0.02); Immature Granulocytes % (auto) 0.2 %; Lymphocytes # (auto) 1.64 K/uL (1.2-3.4); Lymphocytes % (auto) 18.6 %; Mean Corpuscular Hemoglobin 29.5 pg (25-34); Mean Corpuscular Hgb Conc 34.2 g/dL (32-36); Mean Corpuscular Volume 86.2 fL (80-100); Mean Platelet Volume 10.2 fL (7.4-10.4); Monocytes # (auto) 0.68 K/uL (0.11-0.59); Monocytes % (auto) 7.7 %; Neutrophils # (auto) 6.27 K/uL (1.4-6.5); Neutrophils % (auto) 71.3 %; Platelet Count 148 K/uL (130-400); RDW Coefficient of Variation 14.7 % (11.5-14.5); RDW Standard Deviation 45.8 fL (36.4-46.3); Red Blood Count 4.27 M/uL (4.7-6.1); White Blood Count 8.81 K/uL (4.8-10.8)
[2022-02-26] MEDS ORDERED: FUROSEMIDE 40 MG/4 ML VIAL IV ONE (00:55)
--- NOTE | 2022-02-26 00:55 | Emergency Department Note ---
History of Present Illness General Chief complaint: Respiratory Problems Stated complaint: CHEST PAIN,HARD TO BREATHE,MED REFILL Time Seen by Provider: 02/26/22 00:35 History of Present Illness 66-year-old male with a history of CHF is a poor historian states that he has gained 2 to 3 pounds he reportedly was taken double dose of Lasix in the past month but he was unable to get that prescription filled by the pharmacy. Patient states over the past few days he has had a 3 to 4 pound weight gain and some shortness of breath. Patient denies cough cold congestion denies chest pain. There are no other mitigating or alleviating factors. Home Medications Medication Instructions Recorded Confirmed Type lancets 30 gauge (AnaquaToBeQuan Delica #100 ea 05/03/21 02/26/22 Rx Plus Lancet) atorvastatin 10 mg tablet 10 mg PO HS #90 tab 08/05/21 02/26/22 Rx blood-glucose meter (AnaquaTouch ea 08/09/21 02/26/22 History Verio Reflect Meter) glimepiride 2 mg tablet 2 mg PO QAM #90 tab 01/11/22 02/26/22 Rx carvedilol 12.5 mg tablet 12.5 mg PO BID #180 tab 01/17/22 02/26/22 Rx metformin 1,000 mg tablet 1,000 mg PO BID #60 tab 02/03/22 02/26/22 Rx tramadol 50 mg tablet 50 - 100 mg PO Q6H PRN #40 tab 02/15/22 02/26/22 Rx albuterol sulfate 90 mcg/actuation 2 inh INHALATION Q6H #18 g 02/20/22 02/26/22 Rx aerosol inhaler lorazepam 0.5 mg tablet 0.5 mg PO Q8H PRN #30 tab 02/20/22 02/26/22 Rx furosemide 20 mg tablet (Lasix) See Rx Instructions .ROUTE 02/21/22 02/26/22 Rx .COMPLEX #100 tab sacubitril 49 mg-valsartan 51 mg 1 tab PO BID #180 tab 02/21/22 02/26/22 Rx tablet (Entresto) Allergies Allergy/AdvReac Type Severity Reaction Status Date / Time No Known Allergies Allergy Verified 02/26/22 01:46 Past Med/Surg History Medical History Anxiety Chronic back pain Chronic low back pain Diabetes mellitus, type 2 GERD (gastroesophageal reflux disease) Gout Hyperlipidemia Hypertension Lumbar radicular pain Osteoarthritis Pain, dental Polyneuropathy Post traumatic stress disorder Skin cancer of forehead Sleep apnea Tubular adenoma of colon Surgical History H/O foot surgery History of cardiac cath History of colonoscopy with polypectomy Family History Family/Other Family history of diabetes mellitus Alcoholism Heart disease Brother Alcoholism Myocardial infarction Mother Heart disease Father Lung cancer Denies family history of Ovarian cancer Prostate cancer Breast cancer Colorectal cancer Social History Smoking Status: Never smoker Tobacco Type: Cigarettes Second Hand Exposure: Yes; Hx Alcohol Use: Yes Alcohol type: beer Hx Substance Use: No Preferred Language: Yoruba Communication Ability: Effective Corporate Wellness Coordinator Required: No Beliefs That Will Affect Care: None marital status: Current Living Situation: Spouse current occupational status: employed 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 How many Children do You have: 0 Feels Safe at Home: Yes Childhood Exposure to Second-Hand Smoke: Yes caffeine: Yes (Coffee ) Dental Care, Regularly: No Physical Activity Frequency: Does not Exercise Seatbelt Use: always Sunscreen Use: No Assistive Devices: Denture - Upper and Glasses Review of Systems A total of 10 systems reviewed and were otherwise negative Respiratory: + dyspnea Cardiovascular: no chest pain Physical Exam Vital Signs Vital Signs - 24 hr 02/25/22 23:57 02/26/22 00:06 02/26/22 00:21 Temperature 36 C L Temperature Source Temporal Artery Scan Pulse Rate 129 H Respiratory Rate 22 Respiratory Effort / Characteristics Labored Non-Labored Spontaneous Respiratory Depth Normal Blood Pressure 146/95 H Blood Pressure Mean 112 Blood Pressure Position Sitting Pulse Oximetry 90 94 Oxygen Delivery Method Room Air Room Air Oxygen Flow Rate 4 Sepsis Recent Fever Within 48 Hours No Sepsis New/Unexplained Change in Mental Status N/A Sepsis Action Taken by Nursing No Action Required 02/26/22 00:26 02/26/22 00:33 02/26/22 01:00 Temperature Temperature Source Pulse Rate 117 H 114 H Respiratory Rate 36 H 27 H Respiratory Effort / Characteristics Respiratory Depth Blood Pressure 143/96 H 134/88 Blood Pressure Mean 111 103 Blood Pressure Position Pulse Oximetry 94 94 94 Oxygen Delivery Method Nasal Cannula Nasal Cannula Room Air Oxygen Flow Rate 4 2 Sepsis Recent Fever Within 48 Hours Sepsis New/Unexplained Change in Mental Status Sepsis Action Taken by Nursing 02/26/22 01:30 02/26/22 02:01 Temperature Temperature Source Pulse Rate 117 H 105 H Respiratory Rate 30 H 16 Respiratory Effort / Characteristics Respiratory Depth Blood Pressure 148/93 H 151/92 H Blood Pressure Mean 111 111 Blood Pressure Position Pulse Oximetry 90 94 Oxygen Delivery Method Nasal Cannula Nasal Cannula Oxygen Flow Rate 2 2 Sepsis Recent Fever Within 48 Hours Sepsis New/Unexplained Change in Mental Status Sepsis Action Taken by Nursing VITAL SIGNS - Vital signs and nursing notes were reviewed. GENERAL - No acute distress. Communicates well with provider and answers questions appropriately. SKIN - Without rashes. HEAD - NC/AT. EYES - PERRL with EOMI bilaterally. Sclera anicteric. Palpebral conjunctiva pink and moist with no injection noted. EARS - No deformities of external structures noted on gross examination bilaterally. NOSE - Midline and without cyanosis. No epistaxis or purulent drainage noted. Septum midline without deviation or septal hematoma noted. MOUTH/OROPHARYNX - Without perioral cyanosis. Buccal mucosa pink and moist and without leukoplakia. Tongue midline with equal elevation of palate bilaterally. No tonsillar hypertrophy, erythema, or exudates noted. NECK - Neck with FROM. Supple to palpation. LUNGS - Chest wall symmetric without accessory muscle use, intercostals retractions, or central cyanosis. Normal vesicular breath sounds CTA B/L. No wheezes, rales, or rhonchi appreciated. CARDIAC - Tachycardic with S1/S2. No murmur, rubs, or gallops appreciated. ABDOMEN - Abdominal contour soft without pulsations or visible masses. BS normoactive all four quadrants. No tenderness, palpable masses, hepatosplenomegaly, or ascites noted. EXTREMITIES - No clubbing or peripheral cyanosis. B/l le edema. +5/5 strength noted in UE/LE bilaterally. NEUROLOGIC - Cranial nerves II through XII grossly intact. PSYCH - A&Ox3 and cooperates fully with examiner. Pt is very pleasant and interacts well with examiner. Course Reevaluation(s) Reevaluation #1: Patient is resting in no distress on repeat examination patient was given IV Lasix, the case was discussed with the hospitalist who is actually in the room evaluating the patient for admission Time: 01:20 Administered Medications Discontinued Medications Furosemide (Furosemide 40 Mg/4 Ml Vial) 40 mg IV ONE ONE Stop: 02/26/22 00:56 Last Admin: 02/26/22 01:08 Dose: 40 mg Documented by: [id number] Medical Decision Making Medical Records Attestation: I reviewed the patient's medical records. Laboratory Data Attestation: I reviewed the patient's lab results. Result diagrams: 02/26/22 00:27 02/26/22 00:27 Lab Results 02/26/22 02/26/22 02/26/22 Range/Units 00:17 00:27 00:27 WBC 8.81 (4.8-10.8) K/uL RBC 4.27 L (4.7-6.1) M/uL Hgb 12.6 L (14.0-18.0) g/dL Hct 36.8 L (42-52) % MCV 86.2 (80-100) fL MCH 29.5 (25-34) pg MCHC 34.2 (32-36) g/dL RDW Std Deviation 45.8 (36.4-46.3) fL RDW Coeff of Angelita 14.7 H (11.5-14.5) % Plt Count 148 (130-400) K/uL MPV 10.2 (7.4-10.4) fL Immature Gran % (Auto) 0.2 % Neut % (Auto) 71.3 % Lymph % (Auto) 18.6 % Laporte % (Auto) 7.7 % Eos % (Auto) 2.0 % Baso % (Auto) 0.2 % Neut # (Auto) 6.27 (1.4-6.5) K/uL Lymph # (Auto) 1.64 (1.2-3.4) K/uL Laporte # (Auto) 0.68 H (0.11-0.59) K/uL Eos # (Auto) 0.18 (0-0.5) K/uL Baso # (Auto) 0.02 (0-0.2) K/uL Immature Gran # (Auto) 0.02 (0.00-0.02) K/uL PT 10.4 (9.0-12.0) Seconds INR 1.0 (0.9-1.1) APTT 26.8 (21.0-31.0) Seconds PTT Ratio 1.0 Sodium (136-145) mmol/L Potassium (3.5-5.1) mmol/L Chloride (98-107) mmol/L Carbon Dioxide (21-32) mmol/L Anion Gap (3-11) BUN (6-23) mg/dl Creatinine (0.6-1.4) mg/dl Est Cr Clr Drug Dosing Est GFR ( Amer) ml/min Est GFR (Non-Af Amer) ml/min BUN/Creatinine Ratio (10-20) Glucose (70-99(Fasting)) mg/dl Calcium (8.5-10.1) mg/dl Magnesium (1.7-2.4) mg/dl Total Bilirubin (0.2-1.0) mg/dl AST (13-39) U/L ALT (7-52) U/L Alkaline Phosphatase (34-104) U/L Troponin I High Sens (0-20) pg/ml B-Natriuretic Peptide (0-100) pg/ml Total Protein (6.0-8.3) gm/dl Albumin (3.4-5.0) gm/dl Globulin (2.5-4.0) gm/dl Albumin/Globulin Ratio (0.9-2) SARS-CoV-2, RNA, NAAT NEGATIVE (NEGATIVE) 02/26/22 02/26/22 Range/Units 00:27 00:27 WBC (4.8-10.8) K/uL RBC (4.7-6.1) M/uL Hgb (14.0-18.0) g/dL Hct (42-52) % MCV (80-100) fL MCH (25-34) pg MCHC (32-36) g/dL RDW Std Deviation (36.4-46.3) fL RDW Coeff of Angelita (11.5-14.5) % Plt Count (130-400) K/uL MPV (7.4-10.4) fL Immature Gran % (Auto) % Neut % (Auto) % Lymph % (Auto) % Laporte % (Auto) % Eos % (Auto) % Baso % (Auto) % Neut # (Auto) (1.4-6.5) K/uL Lymph # (Auto) (1.2-3.4) K/uL Laporte # (Auto) (0.11-0.59) K/uL Eos # (Auto) (0-0.5) K/uL Baso # (Auto) (0-0.2) K/uL Immature Gran # (Auto) (0.00-0.02) K/uL PT (9.0-12.0) Seconds INR (0.9-1.1) APTT (21.0-31.0) Seconds PTT Ratio Sodium 137 (136-145) mmol/L Potassium 3.7 (3.5-5.1) mmol/L Chloride 102 (98-107) mmol/L Carbon Dioxide 24 (21-32) mmol/L Anion Gap 11 (3-11) BUN 25 H (6-23) mg/dl Creatinine 1.45 H (0.6-1.4) mg/dl Est Cr Clr Drug Dosing Not Reportable Est GFR ( Amer) 58.6 ml/min Est GFR (Non-Af Amer) 50.5 ml/min BUN/Creatinine Ratio 17.2 (10-20) Glucose 218 H (70-99(Fasting)) mg/dl Calcium 8.8 (8.5-10.1) mg/dl Magnesium 1.7 (1.7-2.4) mg/dl Total Bilirubin 1.7 H (0.2-1.0) mg/dl AST 23 (13-39) U/L ALT 23 (7-52) U/L Alkaline Phosphatase 60 (34-104) U/L Troponin I High Sens 49.5 H (0-20) pg/ml B-Natriuretic Peptide 441 H (0-100) pg/ml Total Protein 6.7 (6.0-8.3) gm/dl Albumin 4.3 (3.4-5.0) gm/dl Globulin 2.4 L (2.5-4.0) gm/dl Albumin/Globulin Ratio 1.8 (0.9-2) SARS-CoV-2, RNA, NAAT (NEGATIVE) ECG Data Attestation: I personally reviewed and interpreted this ECG as follows: Additional Comments: EKG interpreted by me sinus tachycardia rate of 121 with frequent PVCs no obvious ST segment elevation or depression normal axis, left bundle branch block is present MDM Narrative Medical decision making differential diagnosis CHF and cardiac event, plan is to check cardiac evaluation admitted for CHF give diuretics Impression & Plan Acute systolic heart failure, SOB (shortness of breath) Discharge Plan Visit Data Chief Complaint: Respiratory Problems Stated Complaint: CHEST PAIN,HARD TO BREATHE,MED REFILL ED Provider: Jose Juan Lerner Discharge Problem: Acute systolic heart failure, SOB (shortness of breath) Patient Disposition: Being Evaluated by Hospitalist Forms Stand Alone Forms: [facility] Prescriptions Prescriptions: No Action (DME) lancets [OneTouch Delica Plus Lancet] 30 gauge misc See Rx Instructions .Route Qty: 100 RF: 0 atorvastatin 10 mg tablet 10 mg PO HS Qty: 90 RF: 3 glimepiride 2 mg tablet 2 mg PO QAM Qty: 90 RF: 1 carvedilol 12.5 mg tablet 12.5 mg PO BID Qty: 180 RF: 3 metformin 1,000 mg tablet 1,000 mg PO BID Qty: 60 RF: 5 tramadol 50 mg tablet 50 - 100 mg PO Q6H PRN (Reason: Pain) Qty: 40 RF: 0 albuterol sulfate 90 mcg/actuation HFA aerosol inhaler 2 inh inhalation Q6H Qty: 18 RF: 2 lorazepam 0.5 mg tablet 0.5 mg PO Q8H PRN (Reason: anxiety) Qty: 30 RF: 3 Entresto 49-51 mg tablet 1 tab PO BID Qty: 180 RF: 3 furosemide [Lasix] 20 mg tablet See Rx Instructions .ROUTE .COMPLEX Qty: 100 RF: 3 (DME) blood-glucose meter [OneTouch Verio Reflect Meter] Misc See Rx Instructions .Route RF: 0 Referrals Referrals: Estelita De La Paz MD [Primary Care Provider] -
[2022-02-26 01:06] LABS: Partial Thromboplastin Time 26.8 Seconds (21.0-31.0); Prothrombin Time 10.4 Seconds (9.0-12.0)
[2022-02-26 01:08] LABS: Alanine Aminotransferase 23 U/L (7-52); Albumin Globulin Ratio 1.8 (0.9-2); Albumin Level 4.3 gm/dl (3.4-5.0); Alkaline Phosphatase 60 U/L (34-104); Anion Gap 11 (3-11); Aspartate Aminotransferase 23 U/L (13-39); BUN Creatinine Ratio 17.2 (10-20); Bilirubin,Total 1.7 mg/dl (0.2-1.0); Blood Urea Nitrogen 25 mg/dl (6-23); Calcium 8.8 mg/dl (8.5-10.1); Carbon Dioxide 24 mmol/L (21-32); Chloride 102 mmol/L (98-107); Est GFR (African American) 58.6 ml/min; Est GFR (Non-African American) 50.5 ml/min; Globulin 2.4 gm/dl (2.5-4.0); Glucose 218 mg/dl (70-99(Fasting)); Magnesium 1.7 mg/dl (1.7-2.4); Potassium 3.7 mmol/L (3.5-5.1); Sodium 137 mmol/L (136-145); Total Protein 6.7 gm/dl (6.0-8.3)
[2022-02-26 01:10] LABS: Troponin I High Sensitivity 49.5 pg/ml (0-20)
--- NOTE | 2022-02-26 02:11 | History & Physical Report ---
Date of Service February 26, 2022 Assessment & Plan (1) Acute on chronic HFrEF (heart failure with reduced ejection fraction): Plan: Mr. Sauceda is a 66-year-old male with PMHx significant for CAD, dilated cardiomyopathy and HFrEF (LVEF 25%-30% per TTE in 12/2021), LBBB, HTN, Hypercholesterolemia, T2DM (A1c 6.3 in 12/2021), GERD, Gout, AMANDA, Peripheral neuropathy and anxiety who presented to [facility] ED on 02/26 due to worsening dyspnea on exertion, orthopnea and ~5lb weight gain over last several days. Acute on Chronic HFrEF Typical symptoms x several days, appears hypervolemic on exam, with BNP 441 and mild pulmonary edema on CXR. Suspect due to running out of Lasix/Entresto several days ago, with high dietary salt contributing. Weight is 210lbs in ED - per last Cardiology note patient's dry weight is 202lbs. - s/p Lasix 40mg IV x1 in ED, will hold off on further IV dosing for now - re-start home Lasix at 40mg PO daily, first dose later this AM - re-start Entresto 49-51mg PO BID - continue home Carvedilol - daily weights and strict I/Os - heart-healthy, 2g Na-limited diet - recommend close f/u with [facility] Cardiology/HF clinic after discharge - patient will require more dietary education JESSICA Cr 1.45, baseline Cr 1.1-1.3. Suspect pre-renal injury due to acute CHF. - diuresis as stated above - trend in AM Elevated Troponin hsTroponin 49.5. No chest pain and EKG without ST/T changes although with LBBB which is chronic. Suspect demand ischemia due to acute CHF and associated tachycardia. - trend in AM - PRN EKG/Nitro for chest pain Chronic Medical Problems T2DM: A1c 6.3 in 12/2021. Hold home meds and utilize SSI while hospitalized. Hypercholesterolemia: continue home statin Chronic low back pain: ordered PRN Tylenol FEN/GI: heart-healthy/DM2/low salt diet DVT Prophylaxis: Lovenox Code Status: full code Disposition: PCU (2) JESSICA (acute kidney injury): (3) Elevated troponin: (4) Chronic low back pain: (5) Hypertension: (6) Hyperlipemia: (7) GERD (gastroesophageal reflux disease): (8) Cardiomyopathy: (9) CAD (coronary artery disease): (10) Diabetes: (11) Anxiety: History of Present Illness Chief Complaint: SOB Primary Care Provider: Estelita De La Paz MD Mr. Sauceda is a 66-year-old male with PMHx significant for CAD, dilated cardiomyopathy and HFrEF (LVEF 25%-30% per TTE in 12/2021), LBBB, HTN, Hypercholesterolemia, T2DM (A1c 6.3 in 12/2021), GERD, Gout, AMANDA, Peripheral neuropathy and anxiety who presented to [facility] ED on 02/26 due to worsening dyspnea on exertion, orthopnea and ~5lb weight gain over last several days, in context of running out of his Lasix and Entresto 3 days ago. Patient reports that he was taking Entresto 2 pills twice per day instead of the prescribed 1 pill per day, and he was taking Lasix 40mg daily due to weight being persistently greater than 202 pounds. Of note patient has been seeing Zeeshan Clancy with [facility] Cardiology and has had Entresto up-titrated over last ~1 month since being admitted here in 12/2021 for acute on chronic HFrEF. 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 Tries to limit daily fluid intake as well. He denies any recent illnesses. Denies fever/chills. Denies wheezing. In the ED the patient was tachycardic in 120s and tachypneic in mid-30s. Tachypnea improved to mid-20s after ~1 hour of supplemental O2 via 2-4L/min NC. Patient now on room air and breathing comfortably. Labs significant for BUN 25/Cr 1.45 (baseline Cr 1.1-1.3), hsTroponin 49.5 and BNP 441 (was 2151 when he was last admitted in 12/2021 for CHF). COVID -19 negative. CXR with mild pulmonary edema; no infiltrates. Patient was given Lasix 40mg IV x1 in ED, at ~01:00. Allergies Allergy/AdvReac Type Severity Reaction Status Date / Time No Known Allergies Allergy Verified 02/26/22 01:46 Home Medications Medication Instructions Recorded Confirmed Type lancets 30 gauge (OneTouch Delica #100 ea 05/03/21 02/26/22 Rx Plus Lancet) atorvastatin 10 mg tablet 10 mg PO HS #90 tab 08/05/21 02/26/22 Rx blood-glucose meter (OneTouch ea 08/09/21 02/26/22 History Verio Reflect Meter) glimepiride 2 mg tablet 2 mg PO QAM #90 tab 01/11/22 02/26/22 Rx carvedilol 12.5 mg tablet 12.5 mg PO BID #180 tab 01/17/22 02/26/22 Rx metformin 1,000 mg tablet 1,000 mg PO BID #60 tab 02/03/22 02/26/22 Rx tramadol 50 mg tablet 50 - 100 mg PO Q6H PRN #40 tab 02/15/22 02/26/22 Rx albuterol sulfate 90 mcg/actuation 2 inh INHALATION Q6H #18 g 02/20/22 02/26/22 Rx aerosol inhaler lorazepam 0.5 mg tablet 0.5 mg PO Q8H PRN #30 tab 02/20/22 02/26/22 Rx furosemide 20 mg tablet (Lasix) See Rx Instructions .ROUTE 02/21/22 02/26/22 Rx .COMPLEX #100 tab sacubitril 49 mg-valsartan 51 mg 1 tab PO BID #180 tab 02/21/22 02/26/22 Rx tablet (Entresto) Past Med/Surg History Medical History Anxiety Chronic back pain Chronic low back pain Diabetes mellitus, type 2 GERD (gastroesophageal reflux disease) Gout Hyperlipidemia Hypertension Lumbar radicular pain Osteoarthritis Pain, dental Polyneuropathy Post traumatic stress disorder Skin cancer of forehead Sleep apnea Tubular adenoma of colon Surgical History H/O foot surgery History of cardiac cath History of colonoscopy with polypectomy Family History Family/Other Family history of diabetes mellitus Alcoholism Heart disease Brother Alcoholism Myocardial infarction Mother Heart disease Father Lung cancer Denies family history of Ovarian cancer Prostate cancer Breast cancer Colorectal cancer Social History Smoking Status: Never smoker Tobacco Type: Cigarettes Second Hand Exposure: Yes; Hx Alcohol Use: Yes Alcohol type: beer Hx Substance Use: No Preferred Language: Sudanese Communication Ability: Effective Casing In Line Setter Required: No Beliefs That Will Affect Care: None marital status: Current Living Situation: Spouse current occupational status: employed 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 NAD. Cooperative. HEENT: Atraumatic, normocephalic. Pulm: +bibasilar expiratory crackles. Symmetrical chest rise. No increase work of breathing. No respiratory distress. Cardiac: RRR, -mrg. Radial pulses intact and symmetrical. No JVD. No LE edema. Abdominal: soft, non-tender, non-distended, BS x 4 Skin: warm, dry, no rash Results & Data Results & Data ([facility]) Vital Signs (Past 12 Hours) Vital Signs Temp Pulse Resp BP Pulse Ox 02/26/22 01:00 114 H 27 H 134/88 94 02/26/22 00:33 94 02/26/22 00:26 117 H 36 H 143/96 H 94 02/26/22 00:21 94 02/26/22 00:06 36 C L 129 H 22 146/95 H 90 Code Status & VTE Plan VTE Prophylaxis Plan VTE Prophylaxis will be ordered: Yes Supervising Physician Co-Signing Physician Notes Attending addendum: I have physically seen this patient, have supervised the medical residents activities, and agree with the H&P unless as otherwise noted. Assessment and Plan: Acute on chronic HFrEF/elevated troponin/CAD/dilated cardiomyopathy/LBBB/hypertension- The patient will be admitted to telemetry for serial cardiac enzymes, serial EKG's, cardiac rhythm monitoring and a 2-D echocardiogram with Dopplers. Highly sensitive troponin 49.5 on admission Received Lasix 40 mg IV in ED Resume oral Lasix 40 mg daily in a.m. tomorrow Restart Entresto Continue carvedilol Serial BMP magnesium levels JESSICA- Creatinine 1.45 upon admission, with base 1.1-1.3 Follow serially Remaining orders and notations as noted Resident Activity Tracking Resident Involvement: Resident Care Provided Care Provided: Adult Hospital Medicine
[2022-02-26] MEDS ORDERED: ACETAMINOPHEN 325 MG TAB PO PRN (04:21)
[2022-02-26] MEDS ORDERED: GLUCAGON FOR INJ 1 MG VIAL SQ PRN (04:21)
[2022-02-26] MEDS ORDERED: DEXTROSE 50% 50 ML SYRINGE IV PRN (04:21)
[2022-02-26] MEDS ORDERED: GLUCOSE 10 TABS/TUBE PO PRN (04:21)
[2022-02-26] MEDS ORDERED: NITROGLYCERIN SL 0.4 MG/TAB TAB SL PRN (04:21)
[2022-02-26] MEDS ORDERED: CARBOHYDRATES FOR HYPOGLYCEMIA PO PRN (04:21)
[2022-02-26] MEDS ORDERED: GLUCOSE 40% GEL 15 GM TUBE PO PRN (04:21)
[2022-02-26 07:58] LABS: BUN Creatinine Ratio 19.3 (10-20); Calcium 9.6 mg/dl (8.5-10.1); Est GFR (African American) 82.7 ml/min; Est GFR (Non-African American) 71.4 ml/min; Magnesium 1.9 mg/dl (1.7-2.4); Potassium 3.6 mmol/L (3.5-5.1); Troponin I High Sensitivity 1593.8 pg/ml (0-20)
--- NOTE | 2022-02-26 08:08 | XRay Report ---
SINGLE VIEW CHEST CLINICAL HISTORY: Dyspnea. FINDINGS: An AP, portable, upright chest radiograph is compared to study dated 01/20/2022. The heart i s enlarged. There is mild pulmonary vascular congestion. Atelectasis is noted at the lung bases. The lungs and pleural spaces are otherwise clear. No pneumothorax is seen. The skeletal structures are os teopenic. The bony thorax is grossly intact. IMPRESSION: Cardiomegaly with mild pulmonary vascular congestion. ACT 112: Negative or not required by law. Electronically signed by: Pascual Joseph M.D. 02/26/2022 8:07 AM
[2022-02-26] MEDS: INSULIN ASPART PER UNIT SC SCH ×4 (08:34→20:34)
[2022-02-26] MEDS: VALSARTAN/SACUBITRIL 51/49 MG TAB PO SCH ×2 (08:45→20:24)
[2022-02-26] MEDS: carvediloL 12.5 MG TAB PO SCH ×2 (08:45→20:23)
[2022-02-26] MEDS: HEPARIN SOD 5,000 UNIT/0.5 ML VIAL SQ SCH ×2 (08:45→20:24)
[2022-02-26] MEDS ORDERED: FUROSEMIDE 40 MG TAB PO SCH (09:00)
[2022-02-26] MEDS ORDERED: FUROSEMIDE 40 MG/4 ML VIAL IV SCH (09:00)
[2022-02-26] MEDS ORDERED: ASPIRIN 81 MG ECTAB PO ONE (12:22)
--- NOTE | 2022-02-26 12:26 | Hospitalist Progress Note ---
Date of Service February 26, 2022 Assessment & Plan (1) Acute on chronic HFrEF (heart failure with reduced ejection fraction): Plan: - Medicated with IV Lasix 40mg x1 - Additional IV Lasix will be given based on bibasilar crackles, goal FB -1L - Continue Coreg, Entresto - Monitor I/O, daily weights - Suspect cause is recurrent dietary indiscretion and too much fluid intake (2) Elevated troponin: Plan: - HS trop 49.5 on admit, up to 1593 - Pt not currently on ASA, uncertain as to why, will give 324mg PO x1 now - Continue daily ASA 81mg daily - On statin and coreg, both of which has been continued - Trend HS trop q6h - D/w cardiology, established electronics assembler is Dr. Garcia who will be rounding alvarez orrow - Suspect likely elevation is myocardial demand ischemia but pt if pt hasn't been cath'd since 2010, may need updated - Continue cardiac monitoring (3) Obstructive sleep apnea: Plan: - Follows with sleep disorder clinic - Previously had cpap but became intolerant d/t claustrophobia - Has a home sleep apnea test ordered - is to f/u with sleep clinic after this for additional recommendations (4) Diabetes: Plan: - Home regimen held - Accuchecks AC and HS, SSI insulin per protocol (5) CAD (coronary artery disease): Plan: - H/o nonobstructive cad, last cath 2010 - Not presently on asa, but have since added - elevated troponin, being trended - follows with cardiology Plan: Interventions as outlined above. Additional dose of IV lasix, monitor output and symptoms. Trend trop. Will d/w Dr. Garcia tomorrow. May be able to be discharged with outpatient follow up tomorrow. Will d/w Dr. Pelaez. Admission and Anticipated Discharge Date Admission Date: February 26, 2022 Supervising Physician Co-Signing Physician Notes chart reviewed, case d/w Cindy Bush PAC. as above Subjective Patient seen this morning on rounds. Just admitted early this AM with acute dyspnea felt to be secondary to a/c decompensated systolic chf. Medicated with a dose of IV Lasix 40mg x1. Pt subjectively reports feeling greatly improved. Not requiring O2. Had cp en route to the hospital but none presently. Denies dyspnea. Review of Systems Review of Systems: All systems reviewed and are unremarkable except as noted in HPI and below. Denies fever, chills, fatigue, headache, nasal congestion, sore throat, cough, chest pain, shortness of breath, palpitations, orthopnea, PND, abdominal pain, n/v/d, constipation, dysuria, hematuria, frequency, back pain, joint pain or swelling, easy bruising or bleeding, skin lesions or rashes. Physical Exam Physical Exam: GENERAL: 66 yo Well-developed, well-nourished WM. NAD. LUNGS: Nonlabored. Fine bibasilar crackles. No wheezes or rhonchi. CARDIOVASCULAR: Regular rate and rhythm. +JVD ABDOMEN: Soft, non-tender and non-distended. BS normoactive x 4 quad. EXTREMITIES: No edema. Non-tender. Peripheral pulses +2/4. NEUROLOGIC: A&O x3. PSYCHIATRIC: Cooperative. Appropriate mood and affect. SKIN: Warm, dry, intact. No rashes or lesions. Results & Data Results & Data ([facility]) Vital Signs (Past 12 Hours) Vital Signs Temp Pulse Pulse Resp BP BP BP 02/26/22 11:04 36.6 C 77 18 116/72 02/26/22 08:15 36.8 C 92 H 16 114/66 02/26/22 03:55 36.5 C 91 H 88 18 128/87 02/26/22 02:01 105 H 16 151/92 H 02/26/22 01:30 117 H 30 H 148/93 H 02/26/22 01:00 114 H 27 H 134/88 02/26/22 00:33 02/26/22 00:26 117 H 36 H 143/96 H 02/26/22 00:21 Pulse Ox 02/26/22 11:04 91 02/26/22 08:15 92 02/26/22 03:55 94 02/26/22 02:01 94 02/26/22 01:30 90 02/26/22 01:00 94 02/26/22 00:33 94 02/26/22 00:26 94 02/26/22 00:21 94 Laboratory Results 02/26/22 00:27 02/26/22 06:58 HS trop= 49.5 --> 1593.8 Diagnostic Findings CXR= mild PVC PG Care Time/CCT Total # of Minutes Spent Total Time Spent with Patient: Total time spent is greater than 50% in coordination of care (as documented) at patient's floor/unit and/or counseling patient: Coding Level of Care Code None Diagnoses Acute on chronic HFrEF (heart failure with reduced ejection fraction) I50.23 Elevated troponin R77.8 Obstructive sleep apnea G47.33 Diabetes E11.9 CAD (coronary artery disease) I25.10
--- NOTE | 2022-02-26 14:02 | Electrocardiogram Report ---
Test Reason : Blood Pressure : / mmHG Vent. Rate : 121 BPM Atrial Rate : 121 BPM P-R Int : 160 ms QRS Dur : 148 ms QT Int : 386 ms P-R-T Axes : 027 -37 103 degrees QTc Int : 548 ms Sinus tachycardia with frequent Premature ventricular complexes Possible Left atrial enlargement Left axis deviation Left bundle branch block Abnormal ECG When compared with ECG of 20-JAN-2022 22:16, No significant change was found Confirmed by Amando Kumari ([id number]) on 02/26/2022 2:01:45 PM Referred By: REFERRED SELF Confirmed By:Amando Kumari
[2022-02-26] MEDS: FUROSEMIDE 40 MG/4 ML VIAL IV SCH (17:49)
[2022-02-26] MEDS ORDERED: ATORVASTATIN 10 MG TAB PO SCH (21:00)
--- NOTE | 2022-02-26 23:02 | Billing Data ---
Date of Service February 26, 2022 Coding Level of Care Code 73295 Initial Inpt Care Lvl 3
[2022-02-27] MEDS: FUROSEMIDE 40 MG/4 ML VIAL IV SCH (07:37)
[2022-02-27 08:52] LABS: BUN Creatinine Ratio 23.8 (10-20); Calcium 9.3 mg/dl (8.5-10.1); Creatinine Clr Calc Pharmacy 81.9 ml/min; Est GFR (African American) 90.7 ml/min; Est GFR (Non-African American) 78.2 ml/min
[2022-02-27] MEDS: INSULIN ASPART PER UNIT SC SCH ×2 (08:53→12:40)
[2022-02-27] MEDS ORDERED: FUROSEMIDE 20 MG TAB PO SCH (09:00)
[2022-02-27] MEDS ORDERED: ASPIRIN 81 MG ECTAB PO SCH (09:00)
[2022-02-27] MEDS: HEPARIN SOD 5,000 UNIT/0.5 ML VIAL SQ SCH (09:05)
[2022-02-27] MEDS: carvediloL 12.5 MG TAB PO SCH (09:05)
[2022-02-27] MEDS: VALSARTAN/SACUBITRIL 51/49 MG TAB PO SCH (09:06)
[2022-02-27 09:55] LABS: Chol HDL Ratio 3.8 (0-5)
[2022-02-27] MEDS ORDERED: FAMOTIDINE 20 MG TAB PO STA (11:27)
[2022-02-27] MEDS ORDERED: PANTOprazole 40 MG TAB PO STA (11:27)
--- NOTE | 2022-02-27 11:42 | Cardiology Consultation ---
Date of Consultation February 27, 2022 Assessment & Plan (1) Acute on chronic HFrEF (heart failure with reduced ejection fraction): -the patient now compensated after she may intravenous diuretics. -cause of his decompensation was lack of medications. -he follows daily weights and sliding-scale diuretics at home. -stable for hospital discharge. -hopefully pharmacy can provide medications at the time of discharge. -follow-up as scheduled next month. (2) Cardiomyopathy: -ejection fraction of 25-30% on echocardiogram in December. -we are in the process of up titrating his medications. -he has a follow-up echocardiogram scheduled in May. -will determine if he needs an implantable defibrillator at that time. (3) CAD (coronary artery disease): -nonobstructive disease at time of cardiac catheterization for LV dysfunction in July 2011. -no need for cardiac catheterization at this time as he does not experience angina pectoris. History of Present Illness Attending Physician: Juan Carlos Jiménez MD History of Present Illness Mr. Sauceda is a 66-year-old male admitted yesterday in decompensated systolic CHF. This consultation was ordered to assistance cardiac management. Of note, patient is well known to me from inpatient and outpatient setting. The patient was in his usual state until Sunday when he ran out of his Entresto and Lasix. He explains that the pharmacist refused to refill his prescriptions until February 27. The patient noted progressive exertional dyspnea, orthopnea, and a 5 lb week gain. After finishing his work approximately midnight on Sunday, he opted to proceed to the emergency room for further care. On arrival here, patient was noted to be in decompensated CHF. He was given intravenous diuretics and admitted to the hospital for further care. Patient has longstanding history of systolic CHF. He was hospitalized from January 08 through the with decompensated CHF likely secondary to noncompliance with a low-salt diet. His ejection fraction during the hospitalization was noted to be 25-30%. He was started on Entresto and discharged home in stable fashion. The patient has been following daily weights at home and notes a dry weight of 202 lb. On presentation here, the patient's weight was 210 lb. He does carry a history of a dilated, nonischemic cardiomyopathy. He underwent a cardiac catheterization to workup left ventricular dysfunction back in 2010. This noted nonobstructive disease. His ejection fraction has varied from 25 up to 50% during this time frame. Past medical and surgical history 1. Nonobstructive coronary artery disease-July 2011 2. Dilated cardiomyopathy 3. Chronic systolic CHF 4. Hypertension 5. Hypercholesterolemia 6. LBBB 7. Diabetes mellitus 8. GERD 9. Gout 10. Obstructive sleep apnea 11. Generalize peripheral neuropathy 12. Anxiety 13. Colonic polyps 14. Chronic low back pain Social history and lives with his . Works at the [employer]. No tobacco alcohol Family history Noncontributory Review of systems A 10 review systems was undertaken and negative except for that described above. Allergies Allergy/AdvReac Type Severity Reaction Status Date / Time No Known Allergies Allergy Verified 02/26/22 01:46 Home Medications Medication Instructions Recorded Confirmed Type lancets 30 gauge ([employer] Delica #100 ea 05/03/21 02/26/22 Rx Plus Lancet) atorvastatin 10 mg tablet 10 mg PO HS #90 tab 08/05/21 02/26/22 Rx blood-glucose meter ([employer] ea 08/09/21 02/26/22 History Verio Reflect Meter) glimepiride 2 mg tablet 2 mg PO QAM #90 tab 01/11/22 02/26/22 Rx metformin 1,000 mg tablet 1,000 mg PO BID #60 tab 02/03/22 02/26/22 Rx tramadol 50 mg tablet 50 - 100 mg PO Q6H PRN #40 tab 02/15/22 02/26/22 Rx albuterol sulfate 90 mcg/actuation 2 inh INHALATION Q6H #18 g 02/20/22 02/26/22 Rx aerosol inhaler lorazepam 0.5 mg tablet 0.5 mg PO Q8H PRN #30 tab 02/20/22 02/26/22 Rx furosemide 20 mg tablet (Lasix) See Rx Instructions .ROUTE 02/21/22 02/26/22 Rx .COMPLEX #100 tab aspirin 81 mg tablet,delayed 81 mg PO QAM #30 tab 02/27/22 Rx release carvedilol 12.5 mg tablet 12.5 mg PO BID #180 tab 02/27/22 Rx furosemide 40 mg tablet (Lasix) 40 mg PO DAILY #30 tab 02/27/22 Rx pantoprazole 40 mg tablet,delayed 40 mg PO DAILY #30 tab 02/27/22 Rx release (Protonix) sacubitril 49 mg-valsartan 51 mg 1 tab PO BID #180 tab 02/27/22 Rx tablet (Entresto) Patient History Medical History Anxiety Chronic back pain Chronic low back pain Diabetes mellitus, type 2 GERD (gastroesophageal reflux disease) Gout Hyperlipidemia Hypertension Lumbar radicular pain Osteoarthritis Pain, dental Polyneuropathy Post traumatic stress disorder Skin cancer of forehead Sleep apnea Tubular adenoma of colon Surgical History H/O foot surgery History of cardiac cath History of colonoscopy with polypectomy Family History Family/Other Family history of diabetes mellitus Alcoholism Heart disease Brother Alcoholism Myocardial infarction Mother Heart disease Father Lung cancer Denies family history of Ovarian cancer Prostate cancer Breast cancer Colorectal cancer Social History Smoking Status: Never smoker Tobacco Type: Cigarettes Second Hand Exposure: Yes; Hx Alcohol Use: Yes Alcohol type: beer Hx Substance Use: No Preferred Language: Moldovan Communication Ability: Effective Lifeline Representatives Required: No Beliefs That Will Affect Care: None marital status: Current Living Situation: Spouse current occupational status: employed 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 HEENT exam is negative. Neck is supple with full carotid upstrokes. There are no carotid bruits. No JVD. There is no thyromegaly. Cardiovascular exam reveals a regular rhythm with a normal S1 and S2. No S3, S4, or murmurs are noted. Lungs are clear without rales, rhonchi, or wheezes. Abdomen is soft and nontender without bruits. Extremities reveal intact radial arteries. There is no peripheral edema. Results & Data ([facility]) Vital Signs (Past 12 Hours) Vital Signs Temp Pulse Pulse Pulse Resp BP Pulse Ox 02/27/22 11:26 36.4 C L 77 14 95/66 L 94 02/27/22 09:02 36.4 C L 85 16 118/78 91 02/27/22 02:58 36.7 C 81 12 111/75 96 02/27/22 02:03 68 02/26/22 23:49 37.1 C 62 14 112/63 97 Laboratory Results CBC notes hemoglobin of 12.6, hematocrit 36.8, white count 8.8, platelet count [id number]. Electrolytes note a sodium of 138, potassium 4.0, chloride 101, bicarb 20, BUN 24, creatinine 1.01 and glucose of 277. Initial high sensitivity troponin was 1593.8 with follow-up values of 1584.1 and 1139.7. BNP is elevated 441. Diagnostic Findings EKG notes sinus tachycardia with frequent PVCs, left axis deviation, and a complete left bundle-branch block. Chest x-ray notes cardiomegaly and diffuse interstitial edema. PG Care Time/CCT Total # of Minutes Spent Total Time Spent with Patient: Total time spent is greater than 50% in coordination of care (as documented) at patient's floor/unit and/or counseling patient: Coding Level of Care Code 07819 Office/OBS Consult Lvl 4 Diagnoses Acute on chronic HFrEF (heart failure with reduced ejection fraction) I50.23 Cardiomyopathy I42.9 CAD (coronary artery disease) I25.10
[2022-02-27] MEDS ORDERED: carvediloL 12.5 MG TAB PO SCH (11:45)
[2022-02-27] MEDS ORDERED: VALSARTAN/SACUBITRIL 51/49 MG TAB PO SCH (11:45)
--- NOTE | 2022-02-27 11:57 | Discharge Summary ---
Date of Service February 27, 2022 Admission HPI Per Admitting Provider Mr. Sauceda is a 66-year-old male with PMHx significant for CAD, dilated cardiomyopathy and HFrEF (LVEF 25%-30% per TTE in 12/2021), LBBB, HTN, Hypercholesterolemia, T2DM (A1c 6.3 in 12/2021), GERD, Gout, AMANDA, Peripheral ne uropathy and anxiety who presented to [facility] ED on 02/26 due to worsening dyspnea on exertion, orthopnea and ~5lb weight gain over last several days, in context of running out of his Lasix and Entresto 3 days ago. Patient reports that he was taking Entresto 2 pills twice per day instead of the prescribed 1 pill per day, and he was taking Lasix 40mg daily due to weight being persistently greater than 202 pounds. Of note patient has been seeing Zeeshan Clancy with [facility] and has had Entresto up-titrated over last ~1 month since being admitted here in 12/2021 for acute on chronic HFrEF. 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 Tries to limit daily fluid intake as well. He denies any recent illnesses. Denies fever/chills. Denies wheezing. In the ED the patient was tachycardic in 120s and tachypneic in mid-30s. Tachypnea improved to mid-20s after ~1 hour of supplemental O2 via 2-4L/min NC. Patient now on room air and breathing comfortably. Labs significant for BUN 25/Cr 1.45 (baseline Cr 1.1-1.3), hsTroponin 49.5 and BNP 441 (was 2151 when he was last admitted in 12/2021 for CHF). COVID -19 negative. CXR with mild pulmonary edema; no infiltrates. Patient was given Lasix 40mg IV x1 in ED, at ~01:00. Principal Diagnosis 1. Acute on chronic HFrEF 2. Type II NSTEMI Discharge Exam GENERAL: 66 yo Well-developed, well-nourished WM. NAD. LUNGS: Nonlabored. CTAB CARDIOVASCULAR: Regular rate and rhythm. ABDOMEN: Soft, non-tender and non-distended. BS normoactive x 4 quad. EXTREMITIES: No edema. Non-tender. Peripheral pulses +2/4. NEUROLOGIC: A&O x3. PSYCHIATRIC: Cooperative. Appropriate mood and affect. SKIN: Warm, dry, intact. No rashes or lesions. Discharge Data Allergies Allergy/AdvReac Type Severity Reaction Status Date / Time No Known Allergies Allergy Verified 02/26/22 01:46 Consultations 02/26/22 01:18 ED Decision to Admit Stat 02/27/22 08:54 Consult Cardiology Routine Ordered Studies 02/26/22 00:27 02/27/22 08:10 Chest X-Ray 02/26/22 00:31 SINGLE VIEW CHEST CLINICAL HISTORY: Dyspnea. FINDINGS: An AP, portable, upright chest radiograph is compared to study dated 01/20/2022. The heart is enlarged. There is mild pulmonary vascular congestion. Atelectasis is noted at the lung bases. The lungs and pleural spaces are otherwise clear. No pneumothorax is seen. The skeletal structures are osteopenic. The bony thorax is grossly intact. IMPRESSION: Cardiomegaly with mild pulmonary vascular congestion. ACT 112: Negative or not required by law. Electronically signed by: Pascual Joseph M.D. 02/26/2022 8:07 AM Hospital Course (1) Acute on chronic HFrEF (heart failure with reduced ejection fraction): - Medicated with IV Lasix 40mg x1 on admission - Additional IV Lasix 40mg BID was be given based on exam, goal FB -1L (received 2 doses on 02/26 and 1 dose on 02/27), good response - Continued on his Coreg, Entresto - Monitor I/O, daily weights--fluid balance is not accurate so uncertain how much he has actually diuresed but clinically feels and examines better - Suspect cause is recurrent dietary indiscretion and too much fluid intake - Counseled on importance of diet and keeping salt intake to a minimum as well as fluid intake to <2L per day - Given home pack of Entresto and Coreg to ensure he will have a dose tonight and tomorrow morning - New scripts sent to pharmacy which will need picked up tomorrow morning - Also have increased pt's dose of Lasix to 40mg daily (previously on 20mg) -- needs to continue to weight himself daily - Would consider adding SGL-2 to his current heart failure regimen, consider f/u in heart failure clinic with Aileen Chiang PA-C (2) Elevated troponin: - HS trop 49.5 on admit, trended up to 1593 and then back down to 1584 and 1139, c/w NSTEMI (likely type II) - Pt not currently on ASA, uncertain as to why, given 324mg PO x1 on 02/26 - Continue daily ASA 81mg daily - On statin and coreg, both of which has been continued - D/w cardiology, established case supervisor is Dr. Garcia who will be rounding tomorrow - Suspect likely elevation is myocardial demand ischemia but pt if pt hasn't been cath'd since 2010, may need updated - Continue cardiac monitoring - Known h/o LBBB (not knew), no significant changes on EKG - D/w Dr. Garcia this AM, formal consult placed, please see his note for further details - pt will follow up in office, Dr. Garcia does not feel that urgent catheterization is warranted at this time (3) Obstructive sleep apnea: - Follows with sleep disorder clinic - Previously had cpap but became intolerant d/t claustrophobia - Has a home sleep apnea test ordered - is to f/u with sleep clinic after this for additional recommendations (4) Diabetes: - Home regimen held - Accuchecks AC and HS, SSI insulin per protocol provided while in house - Can resume his usual home diabetic regimen - If SGL-2 is added to HF med regimen, would stop the Glimepiride (5) CAD (coronary artery disease): - H/o nonobstructive cad, last cath 2010 - Not presently on asa, but have since added - elevated troponin as indicated above - follows with cardiology At this time, pt is has shown favorable response since being admitted, resuming his HF medications, and diuretics. Appreciate cardiology input/assistance. Pt will follow up with Dr. Garcia in the office as recommended. Advise close follow up with his PCP, should be seen this week in follow up. Above plan of care has been discussed in detail with Dr. Jiménez who has also seen and evaluated this patient prior to discharge and is in agreement with the aforementioned. Total Time Total Time Spent Total Time Spent (In Minutes): >30 minutes Discharge Plan Discharge Items Patient Disposition: Home - Self-Care Reason For Visit: ACUTE ON CHRONIC HFrEF Discharge Diagnosis: Shortness of breath due to fluid accumulation in lungs heart attack due to excess stress on heart muscle Activity: Resume your previous activity Non-emergency contact: Primary Care Provider and Acds Block 1 Operator Call non-emergency contact if: you have any medication questions and your symptoms worsen Follow-up/Referrals: Estelita De La Paz MD [Primary Care Provider] - 03/06/22 11:30 am (Please follow up with Dr. De La Paz on Sunday03/06/22 at 11:30 am. Please arrive to the office at 11:15 am for your appointment. If you are unable to keep this appointment, please call the office to reschedule at [phone].) Diet: Carb Consistent or DM2, Heart Healthy and Low Sodium (2gm) Fluids: 1800ml (7 cups) Addtl Attending Provider Instructions: You are hospitalized for shortness of breath and low oxygen levels due to fluid accumulation in your lungs. In order to correct this, you were given Lasix (a medication to help pee out excess fluid from the body). Since resuming your heart medications that you ran out of prior to coming to the hospital, your symptoms have improved. We have sent new prescriptions to your pharmacy for the following medications: 1. Lasix 40mg, 1 tablet by mouth daily 2. Entresto 49-51mg, 1 tablet by mouth twice a day (morning and night) 3. Coreg 12.5mg, 1 tablet by mouth twice a day (morning and night) We are also providing you with two pills EACH of the Entresto and Coreg so that you will have a dose of each for tonight (02/27) and tomorrow morning (02/28). You will then need to bulk picker your medications at the pharmacy tomorrow. Remember, diet is very important with regards to fluid accumulation. Please be sure to keep salt intake to a minimum! And keep total fluid intake to less than 2 liters in a 24 hour period. The chest pain that you have been experiencing on and off could be related to acid reflux that is entering into your esophagus and causing indigestion. You are being started on a medication called Protonix (Pantoprazole) 40mg, to be taken once a day in the morning, 30 minutes before eating or drinking to help suppress stomach acid. You will need to follow up with your family doctor for this issue as you may benefit from an upper endoscopy (scope with a camera) that would need to be done by a stitcher special machine. You were noted to have elevated heart enzymes which is consistent with a heart attack. This heart attack was likely brought on by the excess stress that your heart was under due to the excessive amount of fluid you had accumulated. We would strongly advise that you make sure you are taking a daily baby Aspirin (81mg) every morning. It will be important for you to closely follow up with your heart doctor as you may need to have an updated heart catheterization to look at your coronary arteries and make sure there is no blockages. It is recommended that you follow up with your family doctor as well as your heart doctor within 1 week of discharge. Take all of your medications as instructed on your discharge paperwork. Please contact the [employer] number if you have any questions/concerns after you are discharged. In the event of a medical emergency, call 911. Pending Studies at Discharge: No Stand-Alone Forms: My [facility] Common Curriculum, Smoking Cessation Medications and DC Order Prescriptions: New aspirin 81 mg Tablet,Delayed Release (Dr/Ec) 81 mg PO QAM Qty: 30 RF: 0 furosemide [Lasix] 40 mg tablet 40 mg PO DAILY Qty: 30 RF: 0 pantoprazole [Protonix] 40 mg tablet,delayed release (DR/EC) 40 mg PO DAILY Qty: 30 RF: 0 Continued (DME) lancets [[employer] Delica Plus Lancet] 30 gauge misc See Rx Instructions .Route Qty: 100 RF: 0 atorvastatin 10 mg tablet 10 mg PO HS Qty: 90 RF: 3 glimepiride 2 mg tablet 2 mg PO QAM Qty: 90 RF: 1 metformin 1,000 mg tablet 1,000 mg PO BID Qty: 60 RF: 5 tramadol 50 mg tablet 50 - 100 mg PO Q6H PRN (Reason: Pain) Qty: 40 RF: 0 albuterol sulfate 90 mcg/actuation HFA aerosol inhaler 2 inh inhalation Q6H Qty: 18 RF: 2 lorazepam 0.5 mg tablet 0.5 mg PO Q8H PRN (Reason: anxiety) Qty: 30 RF: 3 (DME) blood-glucose meter [[employer] Verio Reflect Meter] Misc See Rx Instructions .Route RF: 0 carvedilol 12.5 mg tablet 12.5 mg PO BID Qty: 180 RF: 0 Entresto 49-51 mg tablet 1 tab PO BID Qty: 180 RF: 0 Discontinued furosemide [Lasix] 20 mg tablet See Rx Instructions .ROUTE .COMPLEX Qty: 100 RF: 3 Discharge Orders: Discharge Order (Routine); Ordered 02/27/22 Ordered By: Lacy Bush Admission Data Admit Date/Time: 02/26/22 01:49 Attending Provider: Juan Carlos Jiménez Admit Provider: Tony Shannon Primary Care Provider: Estelita De La Paz Other Providers: Santiago Vieyra ; Renan Garcia Coding Level of Care Code D/C DAY MANAGEMENT >30 MINS Diagnoses Acute on chronic HFrEF (heart failure with reduced ejection fraction) I50.23 Elevated troponin R77.8 Obstructive sleep apnea G47.33 Diabetes E11.9 CAD (coronary artery disease) I25.10
== END 2022-02-27 13:37 | disposition home or self-care (01) | DRG 280 ==
LOC: ED 23:56 → SUATTDRO 02-26 01:49 → 2S 02-26 01:49

== ENCOUNTER 2022-11-09 08:26 | Inpatient (IN) ==
[2022-11-09] MEDS ORDERED: WATER, STERILE FOR INJ 10 ML VIAL ONE (08:51)
[2022-11-09] MEDS ORDERED: BUPIVACAINE 0.25% 30 ML VIAL ONE (08:52)
[2022-11-09] MEDS ORDERED: VANCOMYCIN HCL 1000MG/20ML VIAL ONE (08:52)
--- NOTE | 2022-11-09 09:41 | History & Physical Bridge Note ---
Date of Service November 09, 2022 History & Physical Bridge Note I have examined the patient, reviewed the History & Physical and in the interval since the performance of the History & Physical I have noted the following changes of clinical significance: no changes noted
--- NOTE | 2022-11-09 09:41 | Pre Anesthesia Assessment ---
Date of Service November 09, 2022 Pre Sedation Assessment Vital Signs Pulse Resp BP Pulse Ox O2 Del Method 11/09/22 09:03 72 18 124/76 95 Room Air Cardiovascular + regular rate and + regular rhythm Respiratory + respiratory effort normal Pre-Sedation Airway Assessment Smoking Status: Never smoker Hx Sleep Apnea: Yes Hx Difficult Intubation: No Short, Thick Neck: No Thyromental Distance: > or= 3.5 Finger Breadths Oral Cavity: + WNL Mallampati Class: III ASA: ASA3 NPO Status Date of Last Intake of Fluids: 11/09/22 Time of Last Intake of Fluids: 05:00 Date of Last Intake of Solid Food: 11/08/22 Time of Last Intake of Solid Foods: 22:00 Procedure Planning Contraindications for Sedation: none Current Medications Reviewed: Yes Notes The planned sedation has been discussed with the patient. Informed Consent was obtained. I have identified the patient, determined the appropriateness of sedation and have assessed the patient immediately prior to the procedure. All medicine(s) and interventions are by my order.
[2022-11-09] MEDS ORDERED: MIDAZOLAM HCL 5 MG/ML 1 ML VIAL ONE (10:14)
[2022-11-09] MEDS ORDERED: fentaNYL citrate 100 MCG/2 ML VIAL ONE (10:14)
[2022-11-09] MEDS ORDERED: ceFAZolin 330 MG/ML 1 GM VIAL ONE (10:15)
--- NOTE | 2022-11-09 11:52 | Post Anesthesia Assessment ---
Date of Service November 09, 2022 Post Sedation Assessment Vital Signs Pulse Resp BP Pulse Ox O2 Del Method 11/09/22 09:03 72 18 124/76 95 Room Air Recovery Score Activity: Moves 4 extremities Respiration: Deep Breath/Cough Circulation: +/-20% PreAnes Value Consciousness: Arouseable (by name) Oxygen Saturation: > 92% On Room Air Discharge Sedation Level of Care: Fast Track Phase II Post Sedation Plan On clinical assessment, the patient appears to have tolerated the sedation without complications. Patient is recovering as anticipated. Patient will continue to be monitored by nursing and may be discharged when sedation discharge criteria are met per below protocol. Upon Completions of procedure up to 15 minutes continue every 5 minute vital signs and the P.A.R. score; then discharge to a Phase I or Fast Track to Phase II per the following guidelines: * Discharge Patient to appropriate Phase II area if PAR is 8 or greater or return to pre- procedure baseline. The post - procedure orders will be as di rected. * If PAR score is less than 8 or not return to pre-procedure baseline then patient will follow Phase I monitoring till PAR is reached for Phase II. The Phase I may be done in procedure room or may call to secure a Phase I area. * If naloxone or flumazenil are used for reversal, hold in Phase I for continued monitoring from when last reversal dose was given for a minimum of 60 minutes or longer pending the nurse and/or physician discretion of patient condition before discharge to Phase II. Please call the Sedation Physician to re-evaluate and complete post-note for discharge to Phase II area. Do NOT discharge from procedure sedation or Phase 1 until post- sedation evaluation note is complete by procedure /sedation MD Sedation Discharge Instructions to be given to the patient at discharge to home.
--- NOTE | 2022-11-09 11:52 | Electrophysiology Report ---
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 He is on guideline directed medical therapy but has a persistently low ejection fraction of 30%. He continues to have symptoms of congestive heart failure and is [place] heart Association class 2 symptoms. He has a left bundle branch block QRS morphology with a duration greater than 150 milliseconds. He has an anticipated longevity greater than 1 year. Based on these factors he is felt to be a good candidate for an ICD as primary prevention against sudden cardiac . Biventricular device was selected given his degree of LV dysfunction, persistent symptoms and QRS morphology and duration. Procedure detail: The patient was informed the risks benefits and alternatives to the intended procedure. He understood which proceed. He was taken to the electrophysiology suite in a fasting state. Preoperative antibiotic was administered. Conscious sedation was administered per protocol the patient was monitored electrocardiographically throughout today's procedure. The left upper pectoral areas prepped and draped in usual sterile fashion. This area was anesthetized using subcutaneous menstruation of a lidocaine and Marcaine solution. An incision was made at the site and carried down to the prepectoralis fascia using sharp dissection. Electrocautery was also employed for dissection as well as for hemostasis. A device pocket was fashioned in the tissues above the pectoralis muscle. Left axillary vein was subsequently accessed 3 times using modified Seldinger technique and sheath were placed over guidewires at this site. The sheath were initially used to facilitate passage of the right ventricular and right atrial leads under fluoroscopic guidance. Adequate sensing threshold parameters were obtained prior to active fixation of these leads to the endocardial surface. The proximal portion limb leads were then sutured to prepectoralis fascia using nonabsorbable suture. The remaining guidewire was used to facilitate passage of the sheath and guiding catheter for engagement of the coronary sinus. Coronary sinus venography was then performed in order to identify a suitable target for the pacing lead. Once identified standard guidewire techniques were employed in order to deliver the lead to the target vessel. Adequate sensing, threshold parameters and the absence of diaphragmatic stimulation at high output were confirmed prior to removal of the guiding catheter. The proximal portion of lead was then sutured to prepectoralis fascia using nonabsorbable suture. Device pocket was irrigated with an antibiotic solution. The leads were then attached to the device. The device and leads were then placed in the pocket the pocket was closed in 3 layers of absorbable suture. Steri-Strips and sterile dressing were applied. The device was tested noninvasively prior to concluding the procedure. The patient tolerated procedure well. There were no immediate complications. Equipment used: Pulse generator: [email or web address]. Model number [id number] serial number [id number] S right atrial lead: [employer] Medtronic model 5076 serial number [id number] Right ventricular lead: [employer] Medtronic model 6. 935 mm serial number [id number] Coronary sinus lead: [employer] Medtronic model 4298 serial number [id number] V measured data right atrial lead: P-waves measured 2 mV. Pacing threshold was 0.75 volts at 0.4 milliseconds with a pacing impedance of 608 Ohms Right ventricular lead: R-waves measured 8.4 mV. Pacing threshold was 0.5 volts at 0.4 milliseconds with a pacing impedance of 551 Ohms Coronary sinus lead: In the 2-3 electrode configuration, the pacing threshold was 0.75 volts at 0.4 milliseconds with a pacing impedance of 437 Ohms impression: Successful implantation of biventricular ICD MNPG Electrophysiology codes Pacing Procedure 1: Pacin BiV electrode w/Pacer / ICD implant, add on code ICD Procedure 1: ICD: 34956 Insert single or dual ICD system PG Moderate Sedation Codes Moderate Sedation Codes Procedure 1: Sedation/Anesthesia: 29210 Mod Sedation by the same physician;Init15 Min Child Age 5 & Up Procedure 2: Sedation/Anesthesia: 64227 Mod Sedation by the same physician; Ea [id number] Minutes
[2022-11-09] MEDS ORDERED: BENZONATATE 100 MG CAPSULE PO PRN (11:54)
[2022-11-09] MEDS ORDERED: LORazepam 0.5 MG TAB PO PRN (11:54)
[2022-11-09] MEDS ORDERED: ALBUTEROL HFA 8 GM INHALER INH SCH (12:00)
--- NOTE | 2022-11-09 12:52 | Electrocardiogram Report ---
Test Reason : Blood Pressure : / mmHG Vent. Rate : 070 BPM Atrial Rate : 070 BPM P-R Int : 168 ms QRS Dur : 128 ms QT Int : 472 ms P-R-T Axes : 032 -04 -69 degrees QTc Int : 509 ms Atrial-sensed ventricular-paced rhythm Abnormal ECG When compared with ECG of 26-FEB-2022 00:20, Electronic ventricular pacemaker has replaced Sinus rhythm Vent. rate has decreased BY 51 BPM Confirmed by Amando Kumari ([id number]) on 11/09/2022 12:51:50 PM Referred By: Renan Garcia Confirmed By:Amando Kumari
[2022-11-09] MEDS: oxyCODONE HCL IR 5 MG TAB (IMMEDIATE RELEASE) PO PRN (14:54)
[2022-11-09] MEDS: ACETAMINOPHEN 325 MG TAB PO PRN (16:43)
[2022-11-09] MEDS ORDERED: MoRPHine SULFATE 2 MG/ML CARP IV PRN (19:03)
[2022-11-09] MEDS ORDERED: ceFAZolin 1000MG 1,000 MG/7.5 ML SYR IV ONE (19:30)
[2022-11-09] MEDS: carvediloL 12.5 MG TAB PO SCH (19:44)
[2022-11-09] MEDS: FUROSEMIDE 40 MG TAB PO SCH (19:44)
[2022-11-09] MEDS: VALSARTAN/SACUBITRIL 51/49 MG TAB PO SCH (19:45)
[2022-11-09] MEDS: PANTOprazole 40 MG TAB PO SCH (19:45)
[2022-11-09] MEDS: ALBUTEROL HFA 8 GM INHALER INH SCH (20:24)
[2022-11-09] MEDS ORDERED: ATORVASTATIN 10 MG TAB PO SCH (21:00)
[2022-11-10] MEDS: ALBUTEROL HFA 8 GM INHALER INH SCH ×2 (00:04→07:21)
[2022-11-10] MEDS: oxyCODONE HCL IR 5 MG TAB (IMMEDIATE RELEASE) PO PRN ×2 (00:10→04:12)
[2022-11-10] MEDS ORDERED: ALBUTEROL HFA 8 GM INHALER INH PRN (07:47)
[2022-11-10] MEDS ORDERED: GLIMEPIRIDE 2 MG TAB PO SCH (09:00)
[2022-11-10] MEDS ORDERED: ASPIRIN 81 MG ECTAB PO SCH (09:00)
[2022-11-10] MEDS: FUROSEMIDE 40 MG TAB PO SCH (09:05)
[2022-11-10] MEDS: VALSARTAN/SACUBITRIL 51/49 MG TAB PO SCH (09:05)
[2022-11-10] MEDS: PANTOprazole 40 MG TAB PO SCH (09:05)
[2022-11-10] MEDS: carvediloL 12.5 MG TAB PO SCH (09:06)
[2022-11-10] MEDS: ACETAMINOPHEN 325 MG TAB PO PRN (09:13)
--- NOTE | 2022-11-10 09:36 | XRay Report ---
XR chest 2V PA/lateral HISTORY: Status post pacemaker placement. EXACT TIME ORDERED Evaluate for pneumothorax and l COMPARISON: Chest 05/20/2022. FINDINGS: Interval placement left-sided pacemaker/defibrillator. The leads appear intact. No pneumoth orax. No pleural effusions. The lungs are clear. The heart is stable in size. IMPRESSION: Left-sided pacemaker/defibrillator. No pneumothorax. ACT 112: Negative or not required by law. Electronically signed by: Reed Donahue M.D. 11/10/2022 9:35 AM
--- NOTE | 2022-11-10 10:42 | Discharge Summary ---
Date of Service November 10, 2022 Admission HPI Per Admitting Provider The patient is a 67-year-old gentleman with a history of a nonischemic cardiomyopathy. He has been on guideline directed medical therapy without significant improvement in overall LV function. Also noted to have a left bundle branch block on EKG. He was admitted for implantation of a biventricular ICD for cardiac resynchronization therapy and primary prevention of sudden cardiac . Principal Diagnosis Cardiomyopathy Discharge Exam at the time of discharge the left upper pectoral area of appear to be healing well. No hematoma. Some mild ecchymosis and D vital is a schulz along the incision. No drainage. No significant erythema. Discharge Data Allergies Allergy/AdvReac Type Severity Reaction Status Date / Time No Known Allergies Allergy Verified 10/27/22 11:07 Procedures Performed Operation Date: 11/09/22 11:00 Actual Procedures p ICD Insertion Single or Dual - Mateo Mendoza MD s Lead LV (No Priopr Implant) - Mateo Mendoza MD Ordered Studies 11/09/22 06:45 EP Lab Images for PACS ONCE Hospital Course (1) Cardiomyopathy: Plan On the day of admission the patient underwent implantation of a Medtronic biventricular ICD. No evident complication. The following morning a chest x- ray demonstrated stable lead position without pneumothorax. Device interrogation revealed normal function of all leads. Patient has some mild residual discomfort at the implant site but was otherwise feeling well. Total Time Total Time Spent Total Time Spent (In Minutes): 20 Discharge Plan Discharge Items Patient Disposition: Home - Self-Care Reason For Visit: Cardiomyopathy; LBBB Discharge Diagnosis: cardiomyopathy Activity: Resume your previous activity Activity Comment: No lifting left arm above shoulder behind neck for 6 weeks Lifting: No more than 10 pounds Bathing: Keep incision dry Bathing Comment: keep wound dry and Steri-Strips intact until follow-up next week Driving/Machine Use: Resume 1 day after discharge Non-emergency contact: [employer] Call non-emergency contact if: you have any medication questions, you have a fever, your wound has increased redness, your wound has increased drainage and your wound pain has increased Follow-up/Referrals: Estelita De La Paz MD [Primary Care Provider] - 11/15/22 12:30 pm (follow up with PCP on 11/15 @ 12:30) Diet: Carb Consistent or DM2 and Heart Healthy Addtl Attending Provider Instructions: resume metformin on SundayNovember 12 Pending Studies at Discharge: No Stand-Alone Forms: My [facility], Smoking Cessation Medications and DC Order Prescriptions: New oxycodone 5 mg Tablet 5 mg PO Q4H PRN (Reason: pain) Qty: 10 0RF Continued albuterol sulfate 90 mcg/actuation HFA aerosol inhaler 2 inh inhalation Q6H Qty: 18 2RF atorvastatin 10 mg tablet 10 mg PO HS Qty: 90 3RF glimepiride 2 mg tablet 2 mg PO QAM Qty: 90 1RF metformin 1,000 mg tablet 1,000 mg PO BID Qty: 120 3RF pantoprazole [Protonix] 40 mg tablet,delayed release (DR/EC) 40 mg PO BID Qty: 120 3RF Entresto 49-51 mg tablet 1 tab PO BID Qty: 180 3RF lorazepam 0.5 mg tablet 0.5 mg PO Q8H PRN (Reason: anxiety) Qty: 45 0RF Rx Instructions: PDMP searched, last filled on 09/26/22 for 15 days, DNFB 10/10/21 furosemide [Lasix] 40 mg tablet 40 mg PO BID Qty: 60 11RF nitroglycerin 0.4 mg tablet, sublingual 0.4 mg sublingual Q5M PRN (Reason: chest pain) Qty: 20 3RF Rx Instructions: do not exceed 3 doses per episode aspirin 81 mg Tablet,Delayed Release (Dr/Ec) 81 mg PO QAM Qty: 30 0RF carvedilol 12.5 mg tablet 12.5 mg PO BID Qty: 180 0RF benzonatate 100 mg capsule 100 mg PO TID PRN (Reason: cough) Qty: 30 1RF Discharge Orders: Discharge Order (Routine); Ordered 11/10/22 Ordered By: Mateo Mendoza Admission Data Admit Date/Time: 11/09/22 09:44 Attending Provider: Mateo Mendoza Admit Provider: Mateo Mendoza Primary Care Provider: Estelita De La Paz Other Interventions: Discharge Summary Assessment (RN) Last Done: 11/10/22 10:32 Coding Level of Care Code 33001 Post Operative Follow-Up Diagnoses Cardiomyopathy I42.9
== END 2022-11-10 11:01 | disposition home or self-care (01) | DRG 227 ==
LOC: EP 08:26 → 1E 09:44
PROC: EPB.ICD (2022-11-09 11:00)